=== PATIENT | female | born 1940 | race African-American/Black ===

== ENCOUNTER 2016-08-03 13:19 | Emergency (ER) | payer MEDICARE, MEDICAID ==
[2016-08-03] MEDS ORDERED: Diazepam TAB(*) 5 MG PO ONE (14:31)
--- NOTE | 2016-08-03 14:56 | RAD ---
HISTORY: Neck pain COMPARISONS: MRI dated March 09, 2006 TECHNIQUE: Multiple contiguous axial CT scans were obtained of the cervical spine without intravenous contrast, with coronal and sagittal multiplanar reformations. FINDINGS: BRAIN: The visualized brain is unremarkable CENTRAL CANAL: Evaluation of the central canal is limited on CT technique; however, there is no obvious canalicular mass or epidural hemorrhage. ALIGNMENT: The head is turned to the right VERTEBRAL BODIES: There is multilevel anterolateral marginal osteophyte formation. There is diffuse osteopenia. JOINTS: There is osteoarthritis of the uncovertebral, facet, and atlantoaxial articulations MUSCULATURE: Unremarkable INTERVERTEBRAL DISCS: There is diffuse loss of intervertebral disc height. AXIAL IMAGES: C2-C3: There is right-sided uncovertebral facet hypertrophy. There is moderate right neural foraminal narrowing. There is no osseous central canal stenosis. C3-C4: There is fusion across the facet joints on the right. There is no osseous neural foraminal area or central canal stenosis. C4-C5: There is right greater than left uncovertebral facet hypertrophy. There is mild right neural foraminal narrowing. There is no significant central canal stenosis. C5-C6: There is right-sided uncovertebral facet hypertrophy. There is no significant osseous neural foraminal narrowing or central canal stenosis. C6-C7: There is a broad-based disc osteophyte complex with bilateral uncovertebral facet hypertrophy. There is mild left neural foraminal narrowing. There is no osseous Stenosis. C7-T1: There is no osseous neural foraminal narrowing or central canal stenosis. SOFT TISSUES: The visualized soft tissues of the neck are unremarkable. The prevertebral fat stripe is preserved. OTHER: None. IMPRESSION: DEGENERATIVE DISC DISEASE AND OSTEOARTHRITIS. NO ACUTE OSSEOUS INJURY TO THE CERVICAL SPINE
--- NOTE | 2016-08-03 15:05 | ED ---
Neck Pain - HPI Summary HPI Summary: Patient presents with an exacerbation of her chronic neck. She denies knowing what set this episode in motion but the Tramadol she typically uses is not helping. She denies ROSAS, fever, N/T or vision changes. The pain is over the right side of the neck muscles. She has not been in touch with her PCP. - History of Current Complaint Chief Complaint: EDNeckComplaint Stated Complaint: SPASMS ON RT SIDE Time Seen by Provider: 08/03/16 14:02 Hx Obtained From: Patient Onset/Duration Of Injury/Symptoms: Days Mechanism Of Injury: No Known Trauma Timing: Constant Onset/Duration: Gradual Onset, Still Present Severity Initially: Mild Severity Currently: Severe Pain Intensity: 8 Location: Discrete At: - right neck muscles Character: Aching Aggravating Factors: Movement Alleviating Factors: Nothing Associated Signs & Symptoms: Positive: Negative Related History: Previous Neck Injury - Allergies/Home Medications Allergies/Adverse Reactions: Allergies Allergy/AdvReac Type Severity Reaction Status Date / Time Amitriptyline Allergy Intermediate Tachycardia Verified 11/18/15 16:55 Tizanidine Allergy Intermediate Swelling Verified 11/18/15 16:55 Aspirin [ASA] Allergy Mild GI Upset Verified 11/18/15 16:55 Baclofen Allergy Mild GI Upset Verified 11/18/15 16:55 Benztropine Allergy Mild GI Upset Verified 11/18/15 16:55 Ibuprofen [From Motrin] Allergy Mild GI Upset Verified 11/18/15 16:55 Trihexyphenidyl [From Artane] Allergy Unknown GI Upset Verified 11/18/15 16:55 Risperidone [From Risperdal] AdvReac Severe NMS Verified 11/18/15 16:55 PMH/Surg Hx/FS Hx/Imm Hx Endocrine/Hematology History: Reports: Hx Anemia Denies: Hx Anticoagulant Therapy, Hx Diabetes, Hx Unexplained Bleeding Cardiovascular History: Reports: Hx Hypercholesterolemia - DYSLIPIDEMIA, Other Cardiovascular Problems/Disorders - SEPSIS WITH STREP B Denies: Hx Aneurysm, Hx Angina, Hx Angioplasty, Hx Auto Implanted Cardiovert Defib, Hx Cardiac Arrest, Hx Cardiomegaly, Hx Congenital Heart Disease, Hx Congestive Heart Failure, Hx Coronary Artery Disease, Hx Deep Vein Thrombosis, Hx Embolism, Hx Hypotension, Hx Hypertension, Hx Pacemaker/ICD, Hx Peripheral Vascular Disease, Hx Rheumatic Fever, Hx Syncope, Hx Valvular Heart Disease History: Reports: Other Problems/Disorders - UTI'S Musculoskeletal History: Reports: Hx Osteoporosis, Other Musculoskeletal History - degenerative disc disease, torticollis, cervical dystonia Sensory History: Reports: Hx Contacts or Glasses Denies: Hx Cataracts, Hx Eye Injury, Hx Eye Prosthesis, Hx Glaucoma, Hx Legally Blind, Hx Macular Degeneration, Hx Vision Problem, Hx Deafness, Hx Hearing Aid, Hx Hearing Problem, Other Sensory Impairments Opthamlomology History: Reports: Hx Contacts or Glasses Denies: Hx Cataracts, Hx Eye Injury, Hx Eye Prosthesis, Hx Glaucoma, Hx Legally Blind, Hx Macular Degeneration, Hx Vision Problem, Other Sensory Impairments Neurological History: 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 Psychiatric History: Reports: Hx Anxiety, Hx Depression, Hx Panic Disorder, Hx Inpatient Treatment - [facility] [place] 2010, Hx [facility] Tx - [facility], Hx Schizophrenia, Other Psychiatric Issues/Disorders - PARANOIA Denies: Hx Eating Disorder, Hx of Violent Episodes Against Others - Cancer History Hx Chemotherapy: No Hx Radiation Therapy: No - Surgical History Surgery Procedure, Year, and Place: TUBAL LIGATION 1969 Infectious Disease History: No Infectious Disease History: Reports: Hx of Known/Suspected MRSA Denies: Traveled Outside the [place] in Last 30 Days - Family History Known Family History: Positive: Hypertension - Social History Occupation: Retired Lives: With Family Alcohol Use: Rare Hx Substance Use: No Substance Use Type: Reports: None Hx Tobacco Use: No Smoking Status (MU): Former Smoker Review of Systems Negative: Fever, Chills Negative: Photophobia, Blurred Vision Negative: Sore Throat Positive: Myalgia. Negative: Edema Negative: Rash Negative: Headache, Weakness, Paresthesia, Numbness All Other Systems Reviewed And Are Negative: Yes Physical Exam Triage Information Reviewed: Yes Vital Signs On Initial Exam: Initial Vitals Temp Pulse Resp BP Pulse Ox 98.2 F 103 18 127/77 100 08/03/16 13:21 08/03/16 13:21 08/03/16 13:21 08/03/16 13:21 08/03/16 13:21 Vital Signs Reviewed: Yes Appearance: Positive: Well-Appearing, Well-Nourished, Pain Distress Skin: Positive: Warm, Skin Color Reflects Adequate Perfusion, Dry, Soft Head/Face: Positive: Normal Head/Face Inspection Eyes: Positive: EOMI, CAITLYN, Conjunctiva Clear ENT: Positive: Hearing grossly normal, Pharynx normal Neck: Positive: Supple, Tenderness @ - minimal tenderness over right SCM muscle ; non-tender over cervical spine. Negative: No Lymphadenopathy Respiratory/Lung Sounds: Positive: Breath Sounds Present Cardiovascular: Positive: RRR Musculoskeletal: Positive: Limited @ - turning neck to right and left is limited to 70 degrees bilaterally with mild discomfort.. Negative: Edema Left, Edema Right Neurological: Positive: Sensory/Motor Intact, Alert, Oriented to Person Place, Time, [place] Bundle Intact Distally, Normal Gait Psychiatric: Positive: Affect/Mood Appropriate AVPU Assessment: Alert - [place] Coma Scale Coma Scale Total: 15 Diagnostics - Vital Signs Vital Signs Temp Pulse Resp BP Pulse Ox 08/03/16 13:21 98.2 F 103 18 127/77 100 - Laboratory Lab Statement: Any lab studies that have been ordered have been reviewed, and results considered in the medical decision making process. Re-Evaluation - Re-Evaluation First Eval Re-Evaluation Time: 15:25 Change: Improved - Patient feels better without intervention and is ready for discharge Neck Course/Dx - Diagnoses Differential Dx/HQI/PQRI: Positive: Adenitis, Arthritis, Cervical Fracture, Dystonia, Meningitis, Sprain, Strain, Torticollis Provider Diagnoses: Chronic neck pain Discharge - Discharge Plan Condition: Stable Disposition: HOME Patient Education Materials: Chronic Neck Pain (GEN) Referrals: Ronni Bradley MD [Primary Care Provider] - Additional Instructions: Please follow-up with your primary care provider in 2-3 days for evaluation. Use the medication provided to help with pain. Return to the emergency department if symptoms worsen.
[2016-08-03 15:39] VITALS: BP 122/70
== END 2016-08-03 15:38 | disposition home or self-care (01) ==
LOC: ED 13:19
DX: M54.2 Cervicalgia (principal); G89.29 Other chronic pain; Z88.1 Allergy status to other antibiotic agents; Z88.6 Allergy status to analgesic agent; Z88.8 Allergy status to other drugs, medicaments and biological substances; E78.00 Pure hypercholesterolemia, unspecified; Z87.891 Personal history of nicotine dependence
CPT/HCPCS: 72125; 99282; A9270-GY

== ENCOUNTER 2017-05-08 15:45 | Emergency (ER) | payer MEDICARE, MEDICAID ==
[2017-05-08 20:23] LABS: ALT 11 U/L (7-52); AST 19 U/L (13-39); Albumin 4.5 g/dL (3.2-5.2); Alkaline Phosphatase 62 U/L (34-104); Anion Gap 9 mmol/L (2-11); BUN/Creatinine Ratio 11.9 (8-20); Blood Urea Nitrogen 12 mg/dL (6-24); CO2 Carbon Dioxide 27 mmol/L (22-32); Calcium 9.5 mg/dL (8.6-10.3); Chloride 102 mmol/L (101-111); EGFR African American 68.7 (>60); EGFR Non-African American 53.4 (>60); Globulin 3.3 g/dL (2-4); Glucose 86 mg/dL (70-100); Potassium 3.7 mmol/L (3.5-5.0); Sodium 138 mmol/L (133-145); Total Protein 7.8 g/dL (6.4-8.9)
[2017-05-08 20:32] LABS: Hematocrit 38 % (35-47); Hemoglobin 11.9 g/dl (12.0-16.0); Mean Corpuscular HGB Conc 31 g/dl (31-36); Mean Corpuscular Hemoglobin 23 pg (27-31); Mean Corpuscular Volume 75 fL (80-97); Mean Platelet Volume 9 um3 (7.4-10.4); Red Blood Count 5.11 10^6/ul (4.0-5.4); Red Cell Distribution Width 16 % (10.5-15); White Blood Count 4.5 10^3/ul (3.5-10.8)
[2017-05-08 20:34] LABS: Add Diff/Slide Review? Slide Review Added; Comments Flag Yes
--- NOTE | 2017-05-08 20:43 | RAD ---
HISTORY: Medical clearance, lack of sleep, no appetite COMPARISONS: November 01, 2015 VIEWS: 1: frontal portable view of the chest at 8:26 PM FINDINGS: LINES AND TUBES: None. CARDIOMEDIASTINAL SILHOUETTE: The cardiomediastinal silhouette is normal for portable technique. PLEURA: The costophrenic angles are sharp. No pleural abnormalities are noted. LUNG PARENCHYMA: There is hyperinflation. ABDOMEN: The upper abdomen is clear. There is no subphrenic gas. BONES AND SOFT TISSUES: No bone or soft tissue abnormalities are noted. IMPRESSION: COPD. NO ACTIVE CARDIOPULMONARY DISEASE.
[2017-05-08 20:47] LABS: Acetaminophen < 15 mcg/mL; Salicylate < 2.50 mg/dL (<30)
[2017-05-08 20:56] LABS: Hypochromasia 3+
[2017-05-08 20:57] LABS: Microcytosis 1+
[2017-05-08 21:02] LABS: TSH (Thyroid Stimulating Horm) 1.95 mcIU/mL (0.34-5.60)
[2017-05-08 21:20] LABS: Urine Bacteria Absent (Absent); Urine Bilirubin Negative (Negative); Urine Glucose Negative (Negative); Urine Nitrite Negative (Negative)
[2017-05-08 21:22] LABS: Benzodiazepine Urine Screen None Detected (None Detect)
[2017-05-08] MEDS ORDERED: Levofloxacin TAB* 500 MG PO ONE (21:30)
[2017-05-08 22:02] VITALS: BP 138/81
[2017-05-08] MEDS ORDERED: LORazepam TAB(*) 0.5 MG PO ONE (23:48)
--- NOTE | 2017-05-09 23:37 | ED ---
Shemar Amos Rebecca, scribed for Shaun Pringle MD on 05/08/17 at 2011 . Complex/Multi-Sys Presentation - HPI Summary HPI Summary: Pt is a 76 y/o F who presents to the ED accompanied by her son due to insomnia, decreased appetite and worsening anxiety s/p of her sister. Pt reports that her sister the first week of February (about 2 months ago) and that she did not seek psychiatric support. Pt additionally c/o acute on chronic "spasms through my body" since the last week of February with current pain located in the back and neck. Son additionally notes auditory hallucinations with the pt reporting that that they are telling her "not to have my son come over." Denies SIs/HIs. PMHx spasmodic torticollis, anxiety, schizophrenia. Spasms are typically treated with Tramadol and she receives Abilify shots in the neck every 4-5 weeks for schizophrenia. Pt lives alone and receives aid from caregivers and [employer]. - History Of Current Complaint Chief Complaint: EDGeneral Time Seen by Provider: 05/08/17 19:45 Hx Obtained From: Patient Onset/Duration: Lasting Weeks, Still Present Location: Pain At: - Neck and back Aggravating Factor(s): of sister Alleviating Factor(s): Nothing Associated Signs And Symptoms: Positive: Back Pain, Other - Neck pain, auditory hallucinations, insomnia, decreased appetite, worsening anxiety - Allergies/Home Medications Allergies/Adverse Reactions: Allergies Allergy/AdvReac Type Severity Reaction Status Date / Time Amitriptyline Allergy Intermediate Tachycardia Verified 11/18/15 16:55 Tizanidine Allergy Intermediate Swelling Verified 11/18/15 16:55 Aspirin [ASA] Allergy Mild GI Upset Verified 11/18/15 16:55 Baclofen Allergy Mild GI Upset Verified 11/18/15 16:55 Benztropine Allergy Mild GI Upset Verified 11/18/15 16:55 Ibuprofen [From Motrin] Allergy Mild GI Upset Verified 11/18/15 16:55 Trihexyphenidyl [From Artane] Allergy Unknown GI Upset Verified 11/18/15 16:55 Risperidone [From Risperdal] AdvReac Severe NMS Verified 11/18/15 16:55 PMH/Surg Hx/FS Hx/Imm Hx Endocrine/Hematology History: Reports: Hx Anemia Denies: Hx Anticoagulant Therapy, Hx Diabetes, Hx Unexplained Bleeding Cardiovascular History: Reports: Hx Hypercholesterolemia - DYSLIPIDEMIA, Other Cardiovascular Problems/Disorders - SEPSIS WITH STREP B Denies: Hx Aneurysm, Hx Angina, Hx Angioplasty, Hx Auto Implanted Cardiovert Defib, Hx Cardiac Arrest, Hx Cardiomegaly, Hx Congenital Heart Disease, Hx Congestive Heart Failure, Hx Coronary Artery Disease, Hx Deep Vein Thrombosis, Hx Embolism, Hx Hypotension, Hx Hypertension, Hx Pacemaker/ICD, Hx Peripheral Vascular Disease, Hx Rheumatic Fever, Hx Syncope, Hx Valvular Heart Disease History: Reports: Other Problems/Disorders - UTI'S Musculoskeletal History: Reports: Hx Osteoporosis, Other Musculoskeletal History - degenerative disc disease, torticollis, cervical dystonia Sensory History: Reports: Hx Contacts or Glasses Denies: Hx Cataracts, Hx Eye Injury, Hx Eye Prosthesis, Hx Glaucoma, Hx Legally Blind, Hx Macular Degeneration, Hx Vision Problem, Hx Deafness, Hx Hearing Aid, Hx Hearing Problem, Other Sensory Impairments Opthamlomology History: Reports: Hx Contacts or Glasses Denies: Hx Cataracts, Hx Eye Injury, Hx Eye Prosthesis, Hx Glaucoma, Hx Legally Blind, Hx Macular Degeneration, Hx Vision Problem, Other Sensory Impairments Neurological History: 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 Psychiatric History: Reports: Hx Anxiety, Hx Depression, Hx Panic Disorder, Hx Inpatient Treatment - [facility] [place], Hx [facility] Tx - [facility], Hx Schizophrenia, Other Psychiatric Issues/Disorders - PARANOIA Denies: Hx Eating Disorder, Hx of Violent Episodes Against Others - Cancer History Hx Chemotherapy: No Hx Radiation Therapy: No - Surgical History Surgery Procedure, Year, and Place: TUBAL LIGATION 1969 Infectious Disease History: No Infectious Disease History: Reports: Hx of Known/Suspected MRSA Denies: Traveled Outside the [place] in Last 30 Days - Family History Known Family History: Positive: Hypertension - Social History Lives: Alone Alcohol Use: Rare Hx Substance Use: No Substance Use Type: Reports: None Hx Tobacco Use: No Smoking Status (MU): Former Smoker Review of Systems Positive: Other - Diffuse spasms, neck and back pain Positive: Anxious, Other - Insomnia, decreased appetite, auditory hallucinations ; NEGATIVE: SIs/HIs All Other Systems Reviewed And Are Negative: Yes Physical Exam - Summary Physical Exam Summary: VITAL SIGNS: Reviewed. GENERAL: ~Patient is a well-developed and nourished female who is lying comfortable in the stretcher. Patient is not in any acute respiratory distress. HEAD AND FACE: No signs of trauma. No ecchymosis, hematomas or skull depressions. No sinus tenderness. EYES: PERRLA, EOMI x 2, No injected conjunctiva, no nystagmus. EARS: Hearing grossly intact. Ear canals and tympanic membranes are within normal limits. MOUTH: Oropharynx within normal limits. NECK: Supple, trachea is midline, no adenopathy, no JVD, no carotid bruit, no c- spine tenderness, neck with full ROM. CHEST: Symmetric, no tenderness at palpation LUNGS: Clear to auscultation bilaterally. No wheezing or crackles. CVS: Regular rate and rhythm, S1 and S2 present, no murmurs or gallops appreciated. ABDOMEN: Soft, non-tender. No signs of distention. No rebound no guarding, and no masses palpated. Bowel sounds are normal. EXTREMITIES: FROM in all major joints, no edema, no cyanosis or clubbing. NEURO: Alert and oriented x 3. No acute neurological deficits. Speech is normal and follows commands. SKIN: Dry and warm PSYCHIATRIC: Appeared withdrawn and sad with a low pitchy voice Triage Information Reviewed: Yes Vital Signs On Initial Exam: Initial Vitals Temp Pulse Resp BP Pulse Ox 98.9 F 98 18 156/86 98 05/08/17 15:49 05/08/17 15:49 05/08/17 15:49 05/08/17 15:49 05/08/17 15:49 Vital Signs Reviewed: Yes - [place] Coma Scale Coma Scale Total: 15 Diagnostics - Vital Signs Vital Signs Temp Pulse Resp BP Pulse Ox 05/08/17 20:00 84 19 98 05/08/17 19:31 81 20 98 05/08/17 19:30 159/85 05/08/17 19:17 98.2 F 92 18 148/77 100 05/08/17 17:41 99.6 F 100 20 152/88 99 05/08/17 15:49 98.9 F 98 18 156/86 98 - Laboratory Result Diagrams: 05/08/17 19:59 05/08/17 19:59 Lab Statement: Any lab studies that have been ordered have been reviewed, and results considered in the medical decision making process. - Radiology CXR Xray Interpretation: No Acute Changes - COPD. NO ACTIVE CARDIOPULMONARY DISEASE. Dr. Pringle reviewed radiology report. Radiology Interpretation Completed By: Radiologist - EKG 2012 Cardiac Rate: NL EKG Rhythm: Sinus Rhythm EKG Interpretation: 95 bpm, normal axis, normal intervals, no acute ischemic changes Complex Multi-Symp Course/Dx Assessment/Plan: Pt is a 76 y/o F who presents to the ED accompanied by her son due to insomnia, decreased appetite and worsening anxiety s/p of her sister. Pt reports that her sister the first week of February (about 2 months ago) and that she did not seek psychiatric support. Pt additionally c/ o acute on chronic "spasms through my body" since the last week of February with current pain located in the back and neck. Son additionally notes auditory hallucinations. Denies SIs/HIs. PMHx spasmodic torticollis, anxiety, schizophrenia. Spasms are typically treated with Tramadol and she receives Abilify shots in the neck every 4-5 weeks for schizophrenia. Pt lives alone and receives aid from caregivers and [employer]. UA positive for UTI. EKG and CXR reveal no acute findings. Medically cleared for MHE at 2128. Upon psychiatric evaluation, pt has been cleared for D/C. She will be D/C to home with Dx of UTI and anxiety. Medications reviewed. Elevated BP noted and advised follow-up. - Diagnoses Provider Diagnoses: UTI (urinary tract infection) Discharge - Discharge Plan Condition: Stable Disposition: HOME Referrals: Ronni Bradley MD [Primary Care Provider] - The documentation as recorded by the Shemar kaba Rebecca accurately reflects the service I personally performed and the decisions made by me, Shaun Pringle MD.
== END 2017-05-08 23:10 | disposition home or self-care (01) ==
LOC: ED 15:45
DX: N39.0 Urinary tract infection, site not specified (principal); E78.00 Pure hypercholesterolemia, unspecified; E78.5 Hyperlipidemia, unspecified; F20.9 Schizophrenia, unspecified; M81.0 Age-related osteoporosis without current pathological fracture; F32.9 Major depressive disorder, single episode, unspecified; F41.9 Anxiety disorder, unspecified; J44.9 Chronic obstructive pulmonary disease, unspecified
CPT/HCPCS: 36415; 71010; 80053; 80307; 80329; 81003; 81015; 84443; 85025; 87086; 93005; 99283; A9270-GY; G0480

== ENCOUNTER 2017-05-09 01:46 | Emergency (ER) | payer MEDICARE, MEDICAID ==
[2017-05-09] MEDS ORDERED: Acetaminophen TAB* 325 MG PO ONE (06:34)
--- NOTE | 2017-05-09 06:42 | ED ---
Shemar Amos Rebecca, scribed for Shaun Pringle MD on 05/09/17 at 0227 . Psychiatric Complaint - HPI Summary HPI Summary: Pt is a 76 y/o F BIBA who presents to ED c/o auditory hallucinations s/p Ativan. Pt was seen by [facility] earlier tonight for a MHE and was psychiatrically and medically cleared to be D/C to home and was given 0.5 mg Ativan PO. Previously, pt reported that she takes Ativan, though on this visit she reports she has not taken it for the last 5 weeks. Hallucinations began after administration of medicatoin and have since resolved. Currently, she c/o lightheadedness. - History Of Current Complaint Chief Complaint: EDMentalHealth Time Seen by Provider: 05/09/17 02:00 Hx Obtained From: Patient Onset/Duration: Sudden Onset, Resolved Severity Currently: None Aggravating Factor(s): Other - Ativan Alleviating Factor(s): Other - Spontaneous resolution Associated Signs And Symptoms: Positive: Hallucinating - resolved Related History: Positive For: Prior Psychiatric Issues - Schizophrenia, anxiety , depression, panic disorder - Allergies/Home Medications Allergies/Adverse Reactions: Allergies Allergy/AdvReac Type Severity Reaction Status Date / Time Amitriptyline Allergy Intermediate Tachycardia Verified 11/18/15 16:55 Tizanidine Allergy Intermediate Swelling Verified 11/18/15 16:55 Aspirin [ASA] Allergy Mild GI Upset Verified 11/18/15 16:55 Baclofen Allergy Mild GI Upset Verified 11/18/15 16:55 Benztropine Allergy Mild GI Upset Verified 11/18/15 16:55 Ibuprofen [From Motrin] Allergy Mild GI Upset Verified 11/18/15 16:55 Trihexyphenidyl [From Artane] Allergy Unknown GI Upset Verified 11/18/15 16:55 Risperidone [From Risperdal] AdvReac Severe NMS Verified 11/18/15 16:55 PMH/Surg Hx/FS Hx/Imm Hx Endocrine/Hematology History: Reports: Hx Anemia Denies: Hx Anticoagulant Therapy, Hx Diabetes, Hx Unexplained Bleeding Cardiovascular History: Reports: Hx Hypercholesterolemia - DYSLIPIDEMIA, Other Cardiovascular Problems/Disorders - SEPSIS WITH STREP B Denies: Hx Aneurysm, Hx Angina, Hx Angioplasty, Hx Auto Implanted Cardiovert Defib, Hx Cardiac Arrest, Hx Cardiomegaly, Hx Congenital Heart Disease, Hx Congestive Heart Failure, Hx Coronary Artery Disease, Hx Deep Vein Thrombosis, Hx Embolism, Hx Hypotension, Hx Hypertension, Hx Pacemaker/ICD, Hx Peripheral Vascular Disease, Hx Rheumatic Fever, Hx Syncope, Hx Valvular Heart Disease History: Reports: Other Problems/Disorders - UTI'S Musculoskeletal History: Reports: Hx Osteoporosis, Other Musculoskeletal History - degenerative disc disease, torticollis, cervical dystonia Sensory History: Reports: Hx Contacts or Glasses Denies: Hx Cataracts, Hx Eye Injury, Hx Eye Prosthesis, Hx Glaucoma, Hx Legally Blind, Hx Macular Degeneration, Hx Vision Problem, Hx Deafness, Hx Hearing Aid, Hx Hearing Problem, Other Sensory Impairments Opthamlomology History: Reports: Hx Contacts or Glasses Denies: Hx Cataracts, Hx Eye Injury, Hx Eye Prosthesis, Hx Glaucoma, Hx Legally Blind, Hx Macular Degeneration, Hx Vision Problem, Other Sensory Impairments Neurological History: 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 Psychiatric History: Reports: Hx Anxiety, Hx Depression, Hx Panic Disorder, Hx Inpatient Treatment - [facility] [place] 2010, Hx [facility] - [facility], Hx Schizophrenia, Other Psychiatric Issues/Disorders - PARANOIA Denies: Hx Eating Disorder, Hx of Violent Episodes Against Others - Cancer History Hx Chemotherapy: No Hx Radiation Therapy: No - Surgical History Surgery Procedure, Year, and Place: TUBAL LIGATION 1969 Infectious Disease History: No Infectious Disease History: Reports: Hx of Known/Suspected MRSA Denies: Traveled Outside the [place] in Last 30 Days - Family History Known Family History: Positive: Hypertension - Social History Alcohol Use: Rare Hx Substance Use: No Substance Use Type: Reports: None Hx Tobacco Use: No Smoking Status (MU): Former Smoker Review of Systems Neurological: Other - Lightheadedness Positive: Other - Auditory hallucinations (resolved) All Other Systems Reviewed And Are Negative: Yes Physical Exam - Summary Physical Exam Summary: VITAL SIGNS: Reviewed. GENERAL: ~Patient is a well-developed and nourished female who is lying comfortable in the stretcher. Patient is not in any acute respiratory distress. HEAD AND FACE: No signs of trauma. No ecchymosis, hematomas or skull depressions. No sinus tenderness. EYES: PERRLA, EOMI x 2, No injected conjunctiva, no nystagmus. EARS: Hearing grossly intact. Ear canals and tympanic membranes are within normal limits. MOUTH: Oropharynx within normal limits. CHEST: Symmetric, no tenderness at palpation LUNGS: Clear to auscultation bilaterally. No wheezing or crackles. CVS: Regular rate and rhythm, S1 and S2 present, no murmurs or gallops appreciated. EXTREMITIES: FROM in all major joints, no edema, no cyanosis or clubbing. NEURO: Alert and oriented x 3. No acute neurological deficits. Speech is normal and follows commands. SKIN: Dry and warm PSYCHIATRIC: Shaky Triage Information Reviewed: Yes Vital Signs On Initial Exam: Initial Vitals Temp Pulse Resp BP Pulse Ox 99.6 F 108 16 130/81 100 05/09/17 01:46 05/09/17 01:46 05/09/17 01:46 05/09/17 01:46 05/09/17 01:46 Vital Signs Reviewed: Yes - [place] Coma Scale Coma Scale Total: 15 Diagnostics - Vital Signs Vital Signs Temp Pulse Resp BP Pulse Ox 05/09/17 01:46 99.6 F 108 16 130/81 100 - Laboratory Lab Statement: Any lab studies that have been ordered have been reviewed, and results considered in the medical decision making process. Re-Evaluation - Re-Evaluation First Eval Re-Evaluation Time: 06:39 Comment: Gave her the options of staying here, oging home, or waiting for her some. She chooses to go home. She is willing and wants to go home therefore she will be D/C to home with Dx of anxiety. Course/Dx - Course Assessment/Plan: Pt is a 76 y/o F BIBA who presents to ED c/o auditory hallucinations s/p Ativan. Pt was seen by [facility] earlier tonight for a MHE and was psychiatrically and medically cleared to be D/C to home and was given 0.5 mg Ativan PO. Previously, pt reported that she takes Ativan, though on this visit she reports she has not taken it for the last 5 weeks. Hallucinations began after administration of medicatoin and have since resolved. Currently, she c/o lightheadedness. Medically cleared for MHE at 0219. Gave her the options of staying here, oging home, or waiting for her some. She chooses to go home. She is willing and wants to go home therefore she will be D/C to home with Dx of anxiety. She understands and agrees. Allergies noted. - Differential Dx/Clinical Impression Provider Diagnosis: Anxiety Discharge - Discharge Plan Condition: Stable Disposition: HOME Patient Education Materials: Anxiety (ED) Referrals: Ronni Bradley MD [Primary Care Provider] - Additional Instructions: RETURN TO EMERGENCY DEPARTMENT FOR ANY NEW OR WORSENING SYMPTOMS The documentation as recorded by the Shemar kaba Rebecca accurately reflects the service I personally performed and the decisions made by , Shaun Pringle MD.
[2017-05-09 07:48] VITALS: BP 144/75
== END 2017-05-09 07:48 | disposition home or self-care (01) ==
LOC: ED 01:46
DX: F41.9 Anxiety disorder, unspecified (principal); E78.00 Pure hypercholesterolemia, unspecified; E78.5 Hyperlipidemia, unspecified; Z87.891 Personal history of nicotine dependence
CPT/HCPCS: 99282; A9270-GY

== ENCOUNTER 2017-06-16 10:20 | Inpatient (IN) | payer MEDICARE, MEDICAID ==
--- NOTE | 2017-06-16 12:32 | RAD ---
INDICATION: Altered mental status COMPARISON: CT brain February 08, 2013 TECHNIQUE: Noncontrast axial source images were acquired from the skull base to the vertex. FINDINGS: Ventricles/sulci: There is mild age-related cortical atrophy. Brain parenchyma: There is no focal parenchymal finding, evidence of intracranial mass, or intracranial mass effect. Intracranial hemorrhage:None. Extra-axial spaces: There are no abnormal extra axial fluid collections or evidence of extra-axial mass. Calvarium: There is no calvarial fracture or other calvarial abnormality. Scalp: There is no evidence of scalp or extracalvarial soft tissue abnormality. Paranasal sinuses/mastoid: The paranasal sinuses and mastoid air cells are clear. Other: None. IMPRESSION: No acute intracranial findings.
--- NOTE | 2017-06-16 12:50 | RAD ---
HISTORY: Altered mental status COMPARISONS: May 08, 2017 VIEWS: 1: frontal portable view of the chest at 12:12 PM FINDINGS: LINES AND TUBES: None. CARDIOMEDIASTINAL SILHOUETTE: The cardiomediastinal silhouette is normal for portable technique. PLEURA: The costophrenic angles are sharp. No pleural abnormalities are noted. LUNG PARENCHYMA: There is hyperinflation. ABDOMEN: The upper abdomen is clear. There is no subphrenic gas. BONES AND SOFT TISSUES: There is levocurvature of the spine. IMPRESSION: COPD. NO ACTIVE CARDIOPULMONARY DISEASE.
[2017-06-16 13:23] LABS: EGFR Non-African American 62.5 (>60)
[2017-06-16 13:45] LABS: ABS Basophils 0.1 10^3/ul (0-0.2); ABS Eosinophils 0 10^3/ul (0-0.6); ABS Lymphocytes 1.3 10^3/ul (1.0-4.8); ABS Monocytes 0.4 10^3/ul (0-0.8); ABS Neutrophils 4.9 10^3/ul (1.5-7.7); ABS Nucleated RBC 0 10^3/ul; Eosinophil % 0.3 % (0-6); Hematocrit 36 % (35-47); Hemoglobin 11.5 g/dl (12.0-16.0); Lymphocyte % 18.9 % (25-47); Mean Corpuscular HGB Conc 32 g/dl (31-36); Mean Corpuscular Hemoglobin 24 pg (27-31); Mean Corpuscular Volume 74 fL (80-97); Mean Platelet Volume 10 um3 (7.4-10.4); Nucleated Red Blood Cells % 0.1; Platelet Count 224 10^3/ul (150-450); Red Blood Count 4.89 10^6/ul (4.0-5.4); Red Cell Distribution Width 16 % (10.5-15); White Blood Count 6.6 10^3/ul (3.5-10.8)
[2017-06-16 14:11] LABS: Urine Appearance Clear; Urine Blood 1+ (Negative); Urine Color Yellow; Urine Ketones 1+ (Negative); Urine Protein Negative (Negative); Urine Specific Gravity 1.014 (1.010-1.030); Urine Urobilinogen Negative (Negative)
[2017-06-16] MEDS ORDERED: Levofloxacin TAB* 500 MG PO ONE (14:13)
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
--- NOTE | 2017-06-16 23:33 | ED ---
Turner Amos Stephanie, scribed for Shaun Pringle MD on 06/16/17 at 2327 . Progress - Progress Note Progress Note: Pt pending MHE. Pt diagnosed with psychosis and will be admitted per mental health head start teacher. - Consult/PCP Time Called: 14:00 Course/Dx - Course Course Of Treatment: The pt will be admitted. - Diagnoses Provider Diagnoses: Acute psychosis, UTI (urinary tract infection) - Provider Notifications Instructed by Provider To: Admit As Inpatient The documentation as recorded by the Turner kaba Stephanie accurately reflects the service I personally performed and the decisions made by Yary killian Abdul, MD.
[2017-06-17] MEDS ORDERED: Acetaminophen TAB* 325 MG PO PRN (01:14)
[2017-06-17] MEDS ORDERED: Al Hydrox/Mg Hydrox/Simet LIQ* 30 ML UDC PO PRN (01:14)
[2017-06-17] MEDS ORDERED: ARNICA TOPICAL PRN (01:15)
[2017-06-17] MEDS: LORazepam TAB(*) 0.5 MG PO PRN (01:50)
[2017-06-17] MEDS: traMADol TAB* 50 MG PO PRN ×2 (01:50→23:35)
[2017-06-17] MEDS: Vitamin THERAPEUTIC TAB PO SCH (10:10)
[2017-06-17] MEDS: ARIPiprazole TAB* 2 MG PO SCH (16:57)
[2017-06-17] MEDS: Lidocaine Patch REMOVE* 1 NOTE MISC PATCH OFF SCH (21:31)
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
[2017-06-18] MEDS: traMADol TAB* 50 MG PO PRN (02:30)
[2017-06-18] MEDS: LORazepam TAB(*) 0.5 MG PO PRN ×2 (02:30→23:35)
[2017-06-18] MEDS: ARIPiprazole TAB* 2 MG PO SCH (07:34)
[2017-06-18] MEDS: Vitamin THERAPEUTIC TAB PO SCH (07:34)
[2017-06-18] MEDS: Lidocaine Patch REMOVE* 1 NOTE MISC PATCH OFF SCH (21:17)
[2017-06-19] MEDS: Vitamin THERAPEUTIC TAB PO SCH (09:08)
[2017-06-19] MEDS: traMADol TAB* 50 MG PO PRN (09:09)
[2017-06-19] MEDS: ARIPiprazole TAB* 2 MG PO SCH (09:09)
[2017-06-19] MEDS: Lidocaine PATCH 5%* 1 PATCH TRANSDERM PRN (12:38)
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
[2017-06-20] MEDS: Lidocaine Patch REMOVE* 1 NOTE MISC PATCH OFF SCH ×2 (00:24→23:55)
[2017-06-20] MEDS: Vitamin THERAPEUTIC TAB PO SCH (09:40)
[2017-06-20] MEDS: ARIPiprazole TAB* 2 MG PO SCH (09:40)
--- NOTE | 2017-06-20 10:29 | PN ---
Subjective - Subjective Date of Service: 06/20/17 Service Type: 98619 Hosp care 15 min low complexity Subjective: Carlotta presents today as odd, with strange physical posturing in her bed and paranoid, delusional thoughts. She appears to be confused and tells me that a man named "Gerardo Hammonds" works here on the unit and has been unkind to her. "He 's telling everyone that I should be ostracized." I had Carlotta get up and do some walking for me in the hallway, which she does with minimal assistance. She has no cogwheeling in her upper extremities, although her neck appears dystonic and she has facial tremors. I am told by staff that Carlotta was recently taken off aripiprazole [place] by [facility] but I have clarification about why this was done. The patient denies SI or HI. Objective - Appearance Appearance: Thin Framed Dysmorphic Features: No Hygiene: Normal Grooming: Fairly Well Kept - Behavior Psychomotor Activities: Abnormal-Decreased Exhibits Abnormal Movement: Yes - Attitude and Relatedness Attitude and Relatedness: Psychotically Related Eye Contact: Poor - Speech Quality: Unpressured Latencies: Long Quantity: Terse - Mood Patient's Decription of Mood: "Okay" - Affect Observed Affect: Tense Affect Consistent with: Dysphoria - Thought Process Patient's Thought Process: Disorganized Thought Content: Yes Paranoid Ideation, No Passive Wish, No Suicidal Planning, No Homicidal Ideation - Sensorium Experiencing Hallucinations: Yes Type of Hallucinations: Visual: No, Auditory: Yes, Command: No - Level of Consciousness Level of Consciousness: Alert Orientation: Yes Intact, Yes Orientated to Time, Yes Orientated to Place, Yes Orientated to Person - Impulse Control Impulse Control: Poor - Insight and Judgement Insight and Judgement: Impaired - Group Participation Particating in Group Activities: No - Medication Management Medication Management Adherence: Yes Assessment - Assessment Merits Inpatient Hospitalization: For Immediate Safety, For Stabilization Inpatient DSM-IV Dx: Schizophrenia Clinical Impression: 77 y.o. , AA female with a history of multiple psychiatric hospitalizations in the past for schizophrenia BIB taxi complaining of auditory hallucinations and paranoid delusions regarding people keeping her locked up against her will, as well as some limitations in self-care. Plan - Plan Treatment Plan: Name: CARLOTTA ESCOTO Birthdate: 1940 [id number] We have resumed oral aripiprazole 2mg PO qday and will increase this to 5mg dosing. We need collateral contact with the outpatient clinic to see why injectable aripiprazole was discontinued. I will order PT/OT consults to see if the patient is appropriate for subacute rehab. Will try to maximize outpatient supports, including visiting nursing services. Continue inpatient- level services. Continued Medication Management: Continue Outpt Medication Medications: Current Medications Acetaminophen (Tylenol Tab*) 650 mg PO Q4H PRN PRN Reason: PAIN or TEMP > 101 F Al Hydrox/Mg Hydrox/Simethicone (Maalox Plus*) 30 ml PO Q4H PRN PRN Reason: INDIGESTION Aripiprazole (Abilify Tab*) 5 mg PO DAILY JANIE Lidocaine (Lidoderm 5% Patch*) 1 patch TRANSDERM DAILY PRN PRN Reason: PAIN Last Admin: 06/19/17 12:38 Dose: 1 patch Lorazepam (Ativan Tab(*)) 0.5 mg PO BEDTIME PRN PRN Reason: ANXIETY Last Admin: 06/18/17 23:35 Dose: 0.5 mg Multivitamins (Theragran Tab*) 1 tab PO DAILY JANIE Last Admin: 06/20/17 09:40 Dose: 1 tab Nf: Arnica Gel [ (Homeopathic Product]) 1 dose TOPICAL DAILY PRN PRN Reason: PAIN - ARTHRITIS Pharmacy Profile Note (Lidocaine Patch Remove*) 1 note PATCH OFF 2100 JANIE Last Admin: 06/20/17 00:24 Dose: Not Given Tramadol HCl (Ultram*) 50 mg PO Q6H PRN PRN Reason: PAIN Last Admin: 06/19/17 09:09 Dose: 50 mg - Discharge Plan Discharge Plan: Inpatient Hospitalization Lab Results - Lab Results Lab Results: 06/20/17 06/20/17 07:55 08:22 POC Glucose (mg/dL) 91 Triglycerides 65 Cholesterol 229 LDL Cholesterol 154 HDL Cholesterol 61.9
[2017-06-21] MEDS: Lidocaine PATCH 5%* 1 PATCH TRANSDERM PRN (01:47)
[2017-06-21] MEDS: traMADol TAB* 50 MG PO PRN (01:53)
[2017-06-21] MEDS: ARIPiprazole TAB* 5 MG PO SCH (07:36)
[2017-06-21] MEDS: Vitamin THERAPEUTIC TAB PO SCH (07:37)
--- NOTE | 2017-06-21 11:38 | PN ---
[facility]: Group Therapy Note - Service Type Service Type: 07259 Group Psychotherapy - Cognitive Behavioral Group Therapy ( CBT):Patient attended CBT programming this morning and presented with flat affect that did not vary with discussion. Although responsive to direct prompts to respond to questions, patient did not engage in spontaneous conversation.
--- NOTE | 2017-06-21 12:17 | PN ---
Subjective - Subjective Date of Service: 06/21/17 Service Type: 71189 Hosp care 15 min low complexity Subjective: The patient is more alert and more interactive this morning. She denies AH or paranoid thoughts. I have read the PT and OT evaluations, which indicated that she does not have any acute [place] [facility] needs. The patient states that she is supposed to be on injectable aripiprazole monthly, however, her son, Kingsley, reported that she has been taken off of this by the clinic. This observer left a message for outpatient psychiatrist, Bell Soler ([phone]), in an attempt to clarify her current med regimen. The patient denies SI or HI. Objective - Appearance Appearance: Thin Framed Dysmorphic Features: No Hygiene: Normal Grooming: Well Kept - Behavior Psychomotor Activities: Normal Exhibits Abnormal Movement: No - Attitude and Relatedness Attitude and Relatedness: Cooperative Eye Contact: Fair - Speech Quality: Unpressured Latencies: Normal Quantity: Appropriate - Mood Patient's Decription of Mood: "Okay" - Affect Observed Affect: Fair Affect Consistent with: Euthymia - Thought Process Patient's Thought Process: Coherent Thought Content: No Passive Wish, No Suicidal Planning, No Homicidal Ideation, No Paranoid Ideation - Sensorium Experiencing Hallucinations: No, Sensorium is Clear Type of Hallucinations: Visual: No, Auditory: No, Command: No - Level of Consciousness Level of Consciousness: Alert Orientation: No Intact, No Orientated to Time, No Orientated to Place, No Orientated to Person - Impulse Control Impulse Control: Tenuous - Insight and Judgement Insight and Judgement: Fair - Group Participation Particating in Group Activities: Yes - Medication Management Medication Management Adherence: Yes Assessment - Assessment Merits Inpatient Hospitalization: Consolidate Improvements, Pending Safe DC Plan Inpatient DSM-IV Dx: Schizophrenia Clinical Impression: 77 y.o. , AA female with a history of multiple psychiatric hospitalizations in the past for schizophrenia BIB taxi complaining of auditory hallucinations and paranoid delusions regarding people keeping her locked up against her will, as well as some limitations in self-care. Plan - Plan Treatment Plan: Name: CARLOTTA ESCOTO Birthdate: 1940 [id number] We have resumed oral aripiprazole 2mg PO qday and will increase this to 5mg dosing. We need collateral contact with the outpatient clinic to see if and why injectable aripiprazole was discontinued. PT/OT consults do not seem to support referral to subacute rehab. Will try to maximize outpatient supports, including visiting nursing services. Continue inpatient-level services. Continued Medication Management: Continue Outpt Medication Medications: Current Medications Acetaminophen (Tylenol Tab*) 650 mg PO Q4H PRN PRN Reason: PAIN or TEMP > 101 F Al Hydrox/Mg Hydrox/Simethicone (Maalox Plus*) 30 ml PO Q4H PRN PRN Reason: INDIGESTION Aripiprazole (Abilify Tab*) 5 mg PO DAILY [facility] Last Admin: 06/21/17 07:36 Dose: 5 mg Lidocaine (Lidoderm 5% Patch*) 1 patch TRANSDERM DAILY PRN PRN Reason: PAIN Last Admin: 06/21/17 01:47 Dose: 1 patch Lorazepam (Ativan Tab(*)) 0.5 mg PO BEDTIME PRN PRN Reason: ANXIETY Last Admin: 06/18/17 23:35 Dose: 0.5 mg Multivitamins (Theragran Tab*) 1 tab PO DAILY [facility] Last Admin: 06/21/17 07:37 Dose: 1 tab Nf: Arnica Gel [ (Homeopathic Product]) 1 dose TOPICAL DAILY PRN PRN Reason: PAIN - ARTHRITIS Pharmacy Profile Note (Lidocaine Patch Remove*) 1 note PATCH OFF 2100 [facility] Last Admin: 06/20/17 23:55 Dose: Not Given Tramadol HCl (Ultram*) 50 mg PO Q6H PRN PRN Reason: PAIN Last Admin: 06/21/17 01:53 Dose: 50 mg - Discharge Plan Discharge Plan: Inpatient Hospitalization Lab Results - Lab Results Lab Results: 06/20/17 06/20/17 06/20/17 07:55 08:22 08:22 POC Glucose (mg/dL) 91 Hemoglobin A1c 5.2 Triglycerides 65 Cholesterol 229 LDL Cholesterol 154 HDL Cholesterol 61.9
[2017-06-21] MEDS: Lidocaine Patch REMOVE* 1 NOTE MISC PATCH OFF SCH (21:55)
[2017-06-22] MEDS: ARIPiprazole TAB* 5 MG PO SCH (07:05)
[2017-06-22] MEDS: Vitamin THERAPEUTIC TAB PO SCH (09:08)
[2017-06-22] MEDS ORDERED: LORazepam TAB(*) 1 MG PO ONE (10:30)
[2017-06-22 11:31] LABS: Urine Appearance Cloudy; Urine Blood Negative (Negative); Urine Color Yellow; Urine Ketones Negative (Negative); Urine Protein Negative (Negative); Urine Specific Gravity 1.013 (1.010-1.030); Urine Urobilinogen Negative (Negative)
--- NOTE | 2017-06-22 13:03 | PN ---
Subjective - Subjective Date of Service: 06/22/17 Subjective: The patient was found by this observer on the mat next to her bed, naked and resting, as though taking a nap. She was subsequently assisted by staff to put her clothes back on and get into bed. Shortly thereafter she apparently lowered herself back down to all fours and was taking her pants off. One hour later I attempted to re-engage with Carlotta and she was back to herself, stating that she just felt more comfortable on the floor. She seems to be tolerating her medications well and I got a voicemail from outpatient psychiatrist Bell Soler to the effect that the patient is still on long acting aripiprazole and got her last dose of Maintena 200mg IM on Monday, June 07. It was Dr. Soler's expressed sense that periodically Carlotta gets breakthrough psychotic symptoms that necessitate either temporary increases in Maintena dosing or augmentations with oral aripiprazole. The patient denies SI or HI. Objective - Appearance Appearance: Thin Framed Dysmorphic Features: No Hygiene: Normal Grooming: Fairly Well Kept - Behavior Psychomotor Activities: Abnormal-Decreased Exhibits Abnormal Movement: No - Attitude and Relatedness Attitude and Relatedness: Withdrawn Eye Contact: Fair - Speech Quality: Unpressured Latencies: Long Quantity: Terse - Mood Patient's Decription of Mood: "Fine" - Affect Observed Affect: Unvariable Affect Consistent with: Euthymia - Thought Process Patient's Thought Process: Impoverished Thought Content: No Passive Wish, No Suicidal Planning, No Homicidal Ideation, No Paranoid Ideation - Sensorium Experiencing Hallucinations: Yes Type of Hallucinations: Visual: No, Auditory: Yes, Command: No - Level of Consciousness Level of Consciousness: Alert Orientation: Yes Intact, Yes Orientated to Time, Yes Orientated to Place, Yes Orientated to Person - Impulse Control Impulse Control: Poor - Insight and Judgement Insight and Judgement: Impaired - Group Participation Particating in Group Activities: No - Medication Management Medication Management Adherence: Yes Assessment - Assessment Merits Inpatient Hospitalization: For Immediate Safety, For Stabilization Inpatient DSM-IV Dx: Schizophrenia Clinical Impression: 77 y.o. , AA female with a history of multiple psychiatric hospitalizations in the past for schizophrenia BIB taxi complaining of auditory hallucinations and paranoid delusions regarding people keeping her locked up against her will, as well as some limitations in self-care. Plan - Plan Treatment Plan: Name: CARLOTTA ESCOTO Birthdate: 1940 [id number] We have resumed oral aripiprazole 5mg PO qday and will allow some time to let this take effect. She is also on aripiprazole Maintena 200mg IM q4wks. PT/OT consults do not seem to support referral to subacute rehab. Will try to maximize outpatient supports, including visiting nursing services. Continue inpatient-level services. Continued Medication Management: Continue Outpt Medication Medications: Current Medications Acetaminophen (Tylenol Tab*) 650 mg PO Q4H PRN PRN Reason: PAIN or TEMP > 101 F Al Hydrox/Mg Hydrox/Simethicone (Maalox Plus*) 30 ml PO Q4H PRN PRN Reason: INDIGESTION Aripiprazole (Abilify Tab*) 5 mg PO DAILY [facility] Last Admin: 06/22/17 07:05 Dose: 5 mg Lidocaine (Lidoderm 5% Patch*) 1 patch TRANSDERM DAILY PRN PRN Reason: PAIN Last Admin: 06/21/17 01:47 Dose: 1 patch Lorazepam (Ativan Tab(*)) 0.5 mg PO BEDTIME PRN PRN Reason: ANXIETY Last Admin: 06/18/17 23:35 Dose: 0.5 mg Multivitamins (Theragran Tab*) 1 tab PO DAILY [facility] Last Admin: 06/22/17 09:08 Dose: 1 tab Nf: Arnica Gel [ (Homeopathic Product]) 1 dose TOPICAL DAILY PRN PRN Reason: PAIN - ARTHRITIS Pharmacy Profile Note (Lidocaine Patch Remove*) 1 note PATCH OFF 2100 [facility] Last Admin: 06/21/17 21:55 Dose: 1 note Tramadol HCl (Ultram*) 50 mg PO Q6H PRN PRN Reason: PAIN Last Admin: 06/21/17 01:53 Dose: 50 mg - Discharge Plan Discharge Plan: Inpatient Hospitalization Lab Results - Lab Results Lab Results: 06/20/17 06/20/17 06/20/17 07:55 08:22 08:22 POC Glucose (mg/dL) 91 Hemoglobin A1c 5.2 Total Creatine Kinase Triglycerides 65 Cholesterol 229 LDL Cholesterol 154 HDL Cholesterol 61.9 Urine Color Urine Appearance Urine pH Ur Specific Normal Urine Protein Urine Ketones Urine Blood Urine Nitrate Urine Bilirubin Urine Urobilinogen Ur Leukocyte Esterase Urine WBC (Auto) Urine RBC (Auto) Ur Squamous Epith Cells Urine Bacteria Urine Glucose Urine Ascorbic Acid 06/21/17 06/22/17 12:39 11:00 POC Glucose (mg/dL) Hemoglobin A1c Total Creatine Kinase 432 H Triglycerides Cholesterol LDL Cholesterol HDL Cholesterol Urine Color Yellow Urine Appearance Cloudy Urine pH 7.0 Ur Specific Normal 1.013 Urine Protein Negative Urine Ketones Negative Urine Blood Negative Urine Nitrate Negative Urine Bilirubin Negative Urine Urobilinogen Negative Ur Leukocyte Esterase 1+ H Urine WBC (Auto) Trace(0-5/hpf) Urine RBC (Auto) Absent Ur Squamous Epith Cells Present H Urine Bacteria Absent Urine Glucose Negative Urine Ascorbic Acid * H
[2017-06-22] MEDS: Lidocaine Patch REMOVE* 1 NOTE MISC PATCH OFF SCH (20:27)
[2017-06-23] MEDS: Vitamin THERAPEUTIC TAB PO SCH (08:06)
[2017-06-23] MEDS: ARIPiprazole TAB* 5 MG PO SCH (08:06)
--- NOTE | 2017-06-23 08:57 | PN ---
Subjective - Subjective Date of Service: 06/22/17 Service Type: [id number] Group Psychotherapy - Medication Education Group: Patient attended group and presented with flat affect that did not vary with discussion. Although responsive to direct prompts to respond to questions, patient did not engage in spontaneous conversation. Assessment - Assessment Inpatient DSM-IV Dx: Schizophrenia Plan - Plan Treatment Plan: Name: CARLOTTA ESCOTO Birthdate: 1940 [id number] Medications: Current Medications Acetaminophen (Tylenol Tab*) 650 mg PO Q4H PRN PRN Reason: PAIN or TEMP > 101 F Al Hydrox/Mg Hydrox/Simethicone (Maalox Plus*) 30 ml PO Q4H PRN PRN Reason: INDIGESTION Aripiprazole (Abilify Tab*) 5 mg PO DAILY [facility] Last Admin: 06/23/17 08:06 Dose: 5 mg Lidocaine (Lidoderm 5% Patch*) 1 patch TRANSDERM DAILY PRN PRN Reason: PAIN Last Admin: 06/21/17 01:47 Dose: 1 patch Lorazepam (Ativan Tab(*)) 0.5 mg PO BEDTIME PRN PRN Reason: ANXIETY Last Admin: 06/18/17 23:35 Dose: 0.5 mg Multivitamins (Theragran Tab*) 1 tab PO DAILY [facility] Last Admin: 06/23/17 08:06 Dose: 1 tab Nf: Arnica Gel [ (Homeopathic Product]) 1 dose TOPICAL DAILY PRN PRN Reason: PAIN - ARTHRITIS Pharmacy Profile Note (Lidocaine Patch Remove*) 1 note PATCH OFF 2100 [facility] Last Admin: 06/22/17 20:27 Dose: Not Given Tramadol HCl (Ultram*) 50 mg PO Q6H PRN PRN Reason: PAIN Last Admin: 06/21/17 01:53 Dose: 50 mg
--- NOTE | 2017-06-23 13:04 | PN ---
Subjective - Subjective Date of Service: 06/23/17 Subjective: Carlotta seems coherent today and we have not noted any further episodes of her taking her clothes off or getting on the floor, although she continues to position herself oddly in bed. She is going to groups and expresses an interest in going home after the weekend. She denies paranoia or AH. Objective - Appearance Appearance: Thin Framed Dysmorphic Features: No Hygiene: Normal Grooming: Fairly Well Kept - Behavior Psychomotor Activities: Normal Exhibits Abnormal Movement: No - Attitude and Relatedness Attitude and Relatedness: Cooperative Eye Contact: Fair - Speech Quality: Unpressured Latencies: Normal Quantity: Terse - Mood Patient's Decription of Mood: "Okay" - Affect Observed Affect: Unvariable Affect Consistent with: Euthymia - Thought Process Patient's Thought Process: Coherent Thought Content: No Passive Wish, No Suicidal Planning, No Homicidal Ideation, No Paranoid Ideation - Sensorium Experiencing Hallucinations: No, Sensorium is Clear Type of Hallucinations: Visual: No, Auditory: No, Command: No - Level of Consciousness Level of Consciousness: Alert Orientation: Yes Intact, Yes Orientated to Time, Yes Orientated to Place, Yes Orientated to Person - Impulse Control Impulse Control: Poor - Insight and Judgement Insight and Judgement: Impaired - Group Participation Particating in Group Activities: Yes - Medication Management Medication Management Adherence: Yes Assessment - Assessment Merits Inpatient Hospitalization: For Immediate Safety, For Stabilization Inpatient DSM-IV Dx: Schizophrenia Clinical Impression: 77 y.o. , AA female with a history of multiple psychiatric hospitalizations in the past for schizophrenia BIB taxi complaining of auditory hallucinations and paranoid delusions regarding people keeping her locked up against her will, as well as some limitations in self-care. Plan - Plan Treatment Plan: Name: CARLOTTA ESCOTO Birthdate: 1940 [id number] We have resumed oral aripiprazole 5mg PO qday and will allow some time to let this take effect. She is also on aripiprazole Maintena 200mg IM q4wks. PT/OT consults do not seem to support referral to subacute rehab. Will try to maximize outpatient supports, including visiting nursing services. Continue inpatient-level services. Continued Medication Management: Continue Outpt Medication Medications: Current Medications Acetaminophen (Tylenol Tab*) 650 mg PO Q4H PRN PRN Reason: PAIN or TEMP > 101 F Al Hydrox/Mg Hydrox/Simethicone (Maalox Plus*) 30 ml PO Q4H PRN PRN Reason: INDIGESTION Aripiprazole (Abilify Tab*) 5 mg PO DAILY [facility] Last Admin: 06/23/17 08:06 Dose: 5 mg Lidocaine (Lidoderm 5% Patch*) 1 patch TRANSDERM DAILY PRN PRN Reason: PAIN Last Admin: 06/21/17 01:47 Dose: 1 patch Lorazepam (Ativan Tab(*)) 0.5 mg PO BEDTIME PRN PRN Reason: ANXIETY Last Admin: 06/18/17 23:35 Dose: 0.5 mg Multivitamins (Theragran Tab*) 1 tab PO DAILY [facility] Last Admin: 06/23/17 08:06 Dose: 1 tab Nf: Arnica Gel [ (Homeopathic Product]) 1 dose TOPICAL DAILY PRN PRN Reason: PAIN - ARTHRITIS Pharmacy Profile Note (Lidocaine Patch Remove*) 1 note PATCH OFF 2100 [facility] Last Admin: 06/22/17 20:27 Dose: Not Given Tramadol HCl (Ultram*) 50 mg PO Q6H PRN PRN Reason: PAIN Last Admin: 06/21/17 01:53 Dose: 50 mg - Discharge Plan Discharge Plan: Inpatient Hospitalization Lab Results - Lab Results Lab Results: 06/21/17 06/22/17 12:39 11:00 Total Creatine Kinase 432 H Urine Color Yellow Urine Appearance Cloudy Urine pH 7.0 Ur Specific [place] 1.013 Urine Protein Negative Urine Ketones Negative Urine Blood Negative Urine Nitrate Negative Urine Bilirubin Negative Urine Urobilinogen Negative Ur Leukocyte Esterase 1+ H Urine WBC (Auto) Trace(0-5/hpf) Urine RBC (Auto) Absent Ur Squamous Epith Cells Present H Urine Bacteria Absent Urine Glucose Negative Urine Ascorbic Acid * H
[2017-06-23] MEDS: Lidocaine Patch REMOVE* 1 NOTE MISC PATCH OFF SCH (23:26)
[2017-06-24] MEDS: Vitamin THERAPEUTIC TAB PO SCH (08:13)
[2017-06-24] MEDS: ARIPiprazole TAB* 5 MG PO SCH (08:13)
[2017-06-24] MEDS: Lidocaine PATCH 5%* 1 PATCH TRANSDERM PRN (14:20)
[2017-06-24] MEDS ORDERED: LORazepam TAB(*) 0.5 MG PO PRN (15:18)
[2017-06-24] MEDS ORDERED: traMADol TAB* 50 MG PO PRN (15:19)
[2017-06-24] MEDS: Lidocaine Patch REMOVE* 1 NOTE MISC PATCH OFF SCH (20:12)
[2017-06-25] MEDS: ARIPiprazole TAB* 5 MG PO SCH (08:37)
[2017-06-25] MEDS: Vitamin THERAPEUTIC TAB PO SCH (08:38)
[2017-06-25] MEDS: Lidocaine Patch REMOVE* 1 NOTE MISC PATCH OFF SCH (20:44)
[2017-06-26] MEDS: ARIPiprazole TAB* 5 MG PO SCH (09:07)
[2017-06-26] MEDS: Vitamin THERAPEUTIC TAB PO SCH (09:07)
[2017-06-26] MEDS: Lidocaine PATCH 5%* 1 PATCH TRANSDERM PRN (09:09)
--- NOTE | 2017-06-26 11:56 | PN ---
[facility]: Group Therapy Note - Service Type Service Type: [id number] Group Psychotherapy - Cognitive Behavioral Group Therapy ( CBT):Patient attended CBT programming this morning and presented with flat affect that did not vary with discussion. Although responsive to direct prompts to respond to questions, patient did not engage in spontaneous conversation.
[2017-06-26 13:11] LABS: ABS Basophils 0.1 10^3/ul (0-0.2); ABS Eosinophils 0.1 10^3/ul (0-0.6); ABS Lymphocytes 1.8 10^3/ul (1.0-4.8); ABS Monocytes 0.4 10^3/ul (0-0.8); ABS Neutrophils 2.3 10^3/ul (1.5-7.7); ABS Nucleated RBC 0 10^3/ul; Eosinophil % 1.7 % (0-6); Hematocrit 36 % (35-47); Hemoglobin 11.1 g/dl (12.0-16.0); Lymphocyte % 38.8 % (25-47); Mean Corpuscular HGB Conc 31 g/dl (31-36); Mean Corpuscular Hemoglobin 23 pg (27-31); Mean Corpuscular Volume 75 fL (80-97); Mean Platelet Volume 9 um3 (7.4-10.4); Nucleated Red Blood Cells % 0; Platelet Count 227 10^3/ul (150-450); Red Blood Count 4.81 10^6/ul (4.0-5.4); Red Cell Distribution Width 16 % (10.5-15); White Blood Count 4.6 10^3/ul (3.5-10.8)
--- NOTE | 2017-06-26 13:41 | PN ---
Subjective - Subjective Date of Service: 06/26/17 Service Type: [id number] [facility] Subjective: This morning during a group Carlotta had what appeared to be a syncopal event, passing out into the arms of a peer and being unresponsive for several minutes while a CAT team code was called. She later came to and did not recall the event. She does endorse a remote history of seizures but not in years. Later at 1:00 PM we hold a family meeting with the patient and her son, Kingsley. She indicates that her neck has been hurting her and this precipitated the syncope. She was getting Botox injections from a clinician in [place] named Dr. Scherer , but that person is retired and not available any longer. She states she used to see local neurologist Dr. Chapin for this treatment, which is described as highly effective by the patient and her son, as recently as 1994. She denies SI or HI and displays no evidence of psychotic thought process. Objective - Appearance Appearance: Thin Framed Dysmorphic Features: No Hygiene: Normal Grooming: Well Kept - Behavior Psychomotor Activities: Normal Exhibits Abnormal Movement: No - Attitude and Relatedness Attitude and Relatedness: Cooperative Eye Contact: Fair - Speech Quality: Unpressured Latencies: Normal Quantity: Terse - Mood Patient's Decription of Mood: "Okay" - Affect Observed Affect: Unvariable Affect Consistent with: Euthymia - Thought Process Patient's Thought Process: Impoverished Thought Content: No Passive Wish, No Suicidal Planning, No Homicidal Ideation, No Paranoid Ideation - Sensorium Experiencing Hallucinations: No, Sensorium is Clear Type of Hallucinations: Visual: No, Auditory: No, Command: No - Level of Consciousness Level of Consciousness: Alert Orientation: Yes Intact, Yes Orientated to Time, Yes Orientated to Place, Yes Orientated to Person - Impulse Control Impulse Control: Tenuous - Insight and Judgement Insight and Judgement: Fair - Group Participation Particating in Group Activities: Yes - Medication Management Medication Management Adherence: Yes Assessment - Assessment Merits Inpatient Hospitalization: For Ongoing Evaluation Inpatient DSM-IV Dx: Schizophrenia Clinical Impression: 77 y.o. , AA female with a history of multiple psychiatric hospitalizations in the past for schizophrenia BIB taxi complaining of auditory hallucinations and paranoid delusions regarding people keeping her locked up against her will, as well as some limitations in self-care. Plan - Plan Treatment Plan: Name: CARLOTTA ESCOTO Birthdate: 1940 [id number] We have resumed oral aripiprazole 5mg PO qday and she has no evidence of further psychosis. She is also on aripiprazole Maintena 200mg IM q4wks (next due 07/04/17). PT/OT consults do not seem to support referral to subacute rehab. Will try to maximize outpatient supports, including visiting nursing services. Continue inpatient-level services. Will order EEG and Neuro consult for syncope. 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 Continued Medication Management: Different Medication Medications: Current Medications Acetaminophen (Tylenol Tab*) 650 mg PO Q4H PRN PRN Reason: PAIN or TEMP > 101 F Al Hydrox/Mg Hydrox/Simethicone (Maalox Plus*) 30 ml PO Q4H PRN PRN Reason: INDIGESTION Aripiprazole (Abilify Tab*) 5 mg PO DAILY [facility] Last Admin: 06/26/17 09:07 Dose: 5 mg Aripiprazole (Abilify Maintena (Nf)) 200 mg IM .MONTHLY ONE Stop: 07/04/17 09:01 Lidocaine (Lidoderm 5% Patch*) 1 patch TRANSDERM DAILY PRN PRN Reason: PAIN Last Admin: 06/26/17 09:09 Dose: 1 patch Lorazepam (Ativan Tab(*)) 0.5 mg PO BEDTIME PRN PRN Reason: ANXIETY Multivitamins (Theragran Tab*) 1 tab PO DAILY [facility] Last Admin: 06/26/17 09:07 Dose: 1 tab Nf: Arnica Gel [ (Homeopathic Product]) 1 dose TOPICAL DAILY PRN PRN Reason: PAIN - ARTHRITIS Pharmacy Profile Note (Lidocaine Patch Remove*) 1 note PATCH OFF 2100 [facility] Last Admin: 06/25/17 20:44 Dose: Not Given - Discharge Plan Discharge Plan: Inpatient Hospitalization Lab Results - Lab Results Lab Results: 06/26/17 06/26/17 06/26/17 12:08 12:43 12:43 WBC 4.6 RBC 4.81 Hgb 11.1 L Hct 36 MCV 75 L MCH 23 L MCHC 31 RDW 16 H Plt Count 227 MPV 9 Neut % (Auto) 49.5 Lymph % (Auto) 38.8 [place] % (Auto) 8.0 Eos % (Auto) 1.7 Baso % (Auto) 2.0 Absolute Neuts (auto) 2.3 Absolute Lymphs (auto) 1.8 Absolute Monos (auto) 0.4 Absolute Eos (auto) 0.1 Absolute Basos (auto) 0.1 Absolute Nucleated RBC 0 Nucleated RBC % 0 POC Glucose (mg/dL) 185 H Lactic Acid 1.2
[2017-06-26 15:17] LABS: EGFR Non-African American 57.2 (>60)
[2017-06-26 18:22] LABS: Urine Appearance Cloudy; Urine Blood Negative (Negative); Urine Color Yellow; Urine Ketones Negative (Negative); Urine Protein Negative (Negative); Urine Specific Gravity 1.011 (1.010-1.030); Urine Urobilinogen Negative (Negative)
[2017-06-26] MEDS: Lidocaine Patch REMOVE* 1 NOTE MISC PATCH OFF SCH (20:47)
[2017-06-27] MEDS: Vitamin THERAPEUTIC TAB PO SCH (08:24)
[2017-06-27] MEDS: ARIPiprazole TAB* 5 MG PO SCH (08:24)
[2017-06-27] MEDS: Lidocaine PATCH 5%* 1 PATCH TRANSDERM PRN (08:28)
[2017-06-27] MEDS: Lidocaine Patch REMOVE* 1 NOTE MISC PATCH OFF SCH (20:13)
--- NOTE | 2017-06-27 20:39 | CONS ---
NEUROLOGY CONSULTATION: DATE OF CONSULT: 06/27/17 LOCATION: Inpatient. REQUESTING PHYSICIAN: Dr. Hampton. REASON FOR CONSULT: Syncope versus seizure. HISTORY OF PRESENT ILLNESS: Brian Walton is a 77-year-old woman with a history of schizophrenia, treated with long-acting aripiprazole injection as well as a past history of a seizure 4 years ago, who experienced an episode of syncope while in a group setting yesterday. She reportedly was sitting in a group class when just before noon, she began to lean towards the right on to the patient next to her and that person had to hold her up to prevent her from falling. The recreational therapist, who witnessed the event reports that her eyes were half open, but appeared to be rolled up towards the top of her head. She was not responsive to voice at this point and the recreational therapist also helped to keep her sitting upright. She may have appeared diaphoretic during this time. There is no description of tonic-clonic movements or stiffening during this event. The clinical assessment team was called and by the time they arrived, she had come around and was answering questions. I spoke with Dr. Davenport, who was part of the response team, who indicated that she did not seem postictal after this event. She reports that she had a blackout episode approximately 4 years ago, but has had nothing since then. She believes that she was described to have whole body shaking at that time, but this information cannot be corroborated. She never took antiseizure medication. She denies any past history of seizures. She does indicate that she had meningitis as a baby or a toddler, but that she recovered well from this. She denies any history of febrile seizures or head injuries with loss of consciousness. She has a sister, who had seizures. She is admitted to the mental health unit because of decompensation of her psychiatric illness. Otherwise, she also has a history of spasmodic torticollis, for which she has been receiving Botox injections from a physician in [place]. This physician is reportedly retiring and she is due to see this person again in June, but Dr. Hampton also questioned whether she could be seen in our office for these injections where she some years ago was under the care of Dr. Chapin previously. PAST MEDICAL HISTORY: Spasmodic torticollis, schizophrenia, microcytic anemia, degenerative disk disease, hyperlipidemia. HOME MEDICATIONS: 1. Aripiprazole 2 mg daily. 2. Lidocaine patch. 3. Lorazepam 0.5 mg at bedtime. 4. Tramadol 50 mg as needed. 5. Multivitamin. 6. Aripiprazole 200 mg IM monthly. Her current hospital medications include the same as noted in her home medications except that she is now taking 5 mg of aripiprazole by mouth daily. ALLERGIES: AMITRIPTYLINE, TIZANIDINE, ASPIRIN, BACLOFEN, BENZTROPINE, TRIHEXYPHENIDYL, RISPERDAL, IBUPROFEN. FAMILY HISTORY: She indicates that her mother of bladder cancer and her father of myocardial infarction. Sister with seizures as mentioned above, another sister had a stroke. SOCIAL HISTORY: She lives alone with some home services. She has 3 children. 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 REVIEW OF SYSTEMS: She denies any chest pain, palpitations, shortness of breath , cough, constipation, diarrhea, abdominal pain, joint pain, swelling, new skin rashes. PHYSICAL EXAM: Vital Signs: Temperature 99.3, blood pressure 108/41, heart rate 84, oxygen saturation 99% on room air. Her vital signs around the time of this event are recorded at 12:18 p.m. yesterday with a blood pressure of 90/46 and a heart rate of 125, 2 minutes later blood pressure recorded as 142/102 with a heart rate of 75. Her oxygen saturation was 100% at both time points. On general examination, she was lying on her right side in bed when I entered the room, but she woke easily and was cooperative. She is in no acute distress. Her heart is in a regular rate and rhythm with a soft systolic ejection murmur. Her lungs are clear to auscultation bilaterally. She is noted to have laterocollis to the right as well as some occasional retrocollis with associated dystonic tremor of her head. She has hypertrophy of her left sternocleidomastoid and her right trapezius. She is thin and there is no joint swelling or erythema. On neurologic exam, she is fully awake and alert. She is able to state her birthday correctly, but stated that she was 78 years old. She was oriented to the current month. There was no clear dysarthria or aphasia. On cranial nerve exam, pupils were equal, round, and reactive from 3 to 2 mm bilaterally. There is arcus senilis present. Versions are full without nystagmus. Conteh are full to confrontation. Facial sensation and musculature is full and symmetric. Hearing is intact to finger rub. The palate elevates symmetrically and the tongue is midline. On motor exam, she has an intermittent postural and intention tremor in the hands bilaterally. Her tone appears to be increased versus paratonia in the upper and lower extremities. Strength was full throughout. Sensation was intact to light touch in the upper and lower extremities. Reflexes were 2+ throughout with the exception of the ankles, which were difficult to elicit. The toes were equivocal. [id number]-[id number] showed no ataxia, but she has intention tremor bilaterally. Her gait is narrow-based and stable. DIAGNOSTIC STUDIES/LAB DATA: CBC collected yesterday notable for hemoglobin of 11.1, hematocrit of 36, which is stable from admission on 06/16/17. Her CMP yesterday was overall unremarkable aside from a non-fasting glucose of 135. Her urinalysis showed 1+ leukocyte esterase, 2+ white blood cells with no nitrites. I reviewed her brain CT, which was obtained on 06/16/17, which was interpreted to be normal, but I question whether there is a small area of encephalomalacia in the external capsule on the left. Her EEG this morning showed no evidence of epileptiform abnormalities. IMPRESSION AND PLAN: Brian Walton is a 77-year-old woman with a history of schizophrenia and a questionable history of a past seizure 4 years ago, who had an episode of loss of consciousness yesterday while sitting in a group on the behavioral health unit. Given the description of this event and her vital signs around the time of the event, I am more suspicious for a syncopal event than a seizure. She was hypotensive and tachycardic when her vitals were first taken. I would consider longer-term cardiac monitoring whether that be with telemetry or a Holter monitor to detect any intermittent arrhythmias which would put her at risk for this, especially given her age. Her EEG did not show any epileptiform abnormalities nor any focal abnormalities and I would not suggest starting an antiseizure medication at this point especially given the more likely diagnosis of syncope. I suggest continuing to monitor her for any further events, then would obtain vital signs if she were to have another one of these to see if it is consistent with that which was previously noted. I would also make note of how long the episode lasts and whether there is any shaking more indicative of a seizure or a postictal period. I would also put the patient in the supine position if she were to have another one of these events as if it is neurocardiogenic syncope, she may be more likely to recover quickly if she is put in the supine position. However, bradycardia is typically noted with neurocardiogenic syncope and this is not the case with her. With respect to her spasmodic torticollis, I note that she was referred by Dr. Bradley to our office and had an appointment with Dr. Chapin scheduled for 06/16, but I believe that was canceled because she was here in the emergency department for admission through behavioral health unit. I will speak with my office as to whether this appointment can be rescheduled for her, though it sounds like she has a plan in place for Botox in June and then will need to find someone to continue that for her going forward. Thank you for this consultation. If I can a further assistance during the patient's hospitalization, please do not hesitate to contact me. [id number]/[facility] #: [id number] JUNE
--- NOTE | 2017-06-28 02:47 | EEG ---
ELECTROENCEPHALOGRAPHY: DATE OF STUDY: 06/27/17 - ROOM #206 LOCATION: The patient is an inpatient. ORDERING PHYSICIAN: Dr. Hampton. HISTORY: This is a 77-year-old woman who had an episode of syncope versus seizure yesterday. She was reported to be seated in a chair in a group setting when she began to lean towards one side and had to be propped up by another patient. There was no report of extremity shaking and she came around after approximately a minute and a half without any clear postictal period. EEG is requested to evaluate for epileptiform abnormalities. MEDICATIONS: 1. Lorazepam. 2. Aluminum hydroxide. 3. Acetaminophen. 4. Theragran. 5. Aripiprazole. 6. Lidocaine patch. REPORT: The waking background showed appropriate organization with clearly defined anterior to posterior voltage and frequency gradients. There was a well defined posterior dominant rhythm of 8 Hz, which was symmetrical and showed normal reactivity. Anteriorly, there was an expected pattern of lower voltage, irregular, mixed faster frequencies. There was frequent motion artifact in the posterior head regions as the patient has a dystonic head tremor. Photic stimulation and hyperventilation were not performed. The patient did not become drowsy during the study. Throughout the recording, there were no epileptiform discharges, focal features , paroxysmal features or significant hemispheric asymmetries. IMPRESSION: This is a mildly abnormal waking EEG due to the presence of a slow posterior dominant rhythm. These findings are suggestive of mild, nonspecific diffuse encephalopathy. There are no epileptiform abnormalities and no focal findings are seen. [id number]/[facility] #: [id number] MTDD
[2017-06-28] MEDS: ARIPiprazole TAB* 5 MG PO SCH (09:27)
[2017-06-28] MEDS: Vitamin THERAPEUTIC TAB PO SCH (09:27)
[2017-06-28] MEDS: Lidocaine PATCH 5%* 1 PATCH TRANSDERM PRN (09:28)
--- NOTE | 2017-06-28 14:44 | PN ---
Subjective - Subjective Date of Service: 06/28/17 Service Type: 83051 Hosp care 15 min low complexity Subjective: Carlotta feels well today, has been going to groups and participating, and has not experienced any further episodes of unresponsiveness. She denies SI or HI and feels ready to return to her apartment. I spoke with neurologist Jonelle Villarreal yesterday who evaluated the patient and looked at her EEG results. She does not feel like Monday's event was a seizure and opines that the etiology was likely to have been syncopal in nature. I also spoke with the patient's son , Kingsley, who indicates that Monday would be preferable for him to get out of work to come pick her up. We've seen no evidence of paranoia or hallucinations since one to two days s/p admission. Objective - Appearance Appearance: Thin Framed Dysmorphic Features: No Hygiene: Normal Grooming: Fairly Well Kept - Behavior Psychomotor Activities: Normal Exhibits Abnormal Movement: Yes - Attitude and Relatedness Attitude and Relatedness: Cooperative Eye Contact: Fair - Speech Quality: Unpressured Latencies: Normal Quantity: Terse - Mood Patient's Decription of Mood: "Good" - Affect Observed Affect: Unvariable Affect Consistent with: Euthymia - Thought Process Patient's Thought Process: Coherent Thought Content: No Passive Wish, No Suicidal Planning, No Homicidal Ideation, No Paranoid Ideation - Sensorium Experiencing Hallucinations: No, Sensorium is Clear Type of Hallucinations: Visual: No, Auditory: No, Command: No - Level of Consciousness Level of Consciousness: Alert Orientation: Yes Intact, Yes Orientated to Time, Yes Orientated to Place, Yes Orientated to Person - Impulse Control Impulse Control: Tenuous - Insight and Judgement Insight and Judgement: Fair - Group Participation Particating in Group Activities: Yes - Medication Management Medication Management Adherence: Yes Assessment - Assessment Merits Inpatient Hospitalization: Consolidate Improvements, Pending Safe DC Plan Inpatient DSM-IV Dx: Schizophrenia Clinical Impression: 77 y.o. , AA female with a history of multiple psychiatric hospitalizations in the past for schizophrenia BIB taxi complaining of auditory hallucinations and paranoid delusions regarding people keeping her locked up against her will, as well as some limitations in self-care. Plan - Plan Treatment Plan: Name: CARLOTTA ESCOTO Birthdate: 1940 [id number] We have resumed oral aripiprazole 5mg PO qday and she has no evidence of further psychosis. She is also on aripiprazole Maintena 200mg IM q4wks (next due 07/04/17). As per neurology recommendations, we will consult the medicine service for evaluation of the patient's likely syncope. Carlotta will continue to see Dr. Scherer in [place] for IM Botox therapy for chronic spastic tortocolis. PT/OT consults do not seem to support referral to subacute rehab. Will try to maximize outpatient supports, including visiting nursing services. [employer] d/c to home on Monday (06/30). Continued Medication Management: Continue Outpt Medication Medications: Current Medications Acetaminophen (Tylenol Tab*) 650 mg PO Q4H PRN PRN Reason: PAIN or TEMP > 101 F Al Hydrox/Mg Hydrox/Simethicone (Maalox Plus*) 30 ml PO Q4H PRN PRN Reason: INDIGESTION Aripiprazole (Abilify Tab*) 5 mg PO DAILY [facility] Last Admin: 06/28/17 09:27 Dose: 5 mg Aripiprazole (Abilify Maintena (Nf)) 200 mg IM .MONTHLY ONE Stop: 07/04/17 09:01 Lidocaine (Lidoderm 5% Patch*) 1 patch TRANSDERM DAILY PRN PRN Reason: PAIN Last Admin: 06/28/17 09:28 Dose: 1 patch Lorazepam (Ativan Tab(*)) 0.5 mg PO BEDTIME PRN PRN Reason: ANXIETY Multivitamins (Theragran Tab*) 1 tab PO DAILY [facility] Last Admin: 06/28/17 09:27 Dose: 1 tab Nf: Arnica Gel [ (Homeopathic Product]) 1 dose TOPICAL DAILY PRN PRN Reason: PAIN - ARTHRITIS Pharmacy Profile Note (Lidocaine Patch Remove*) 1 note PATCH OFF [address] [facility] Last Admin: 06/27/17 20:13 Dose: 1 note - Discharge Plan Discharge Plan: Inpatient Hospitalization Lab Results - Lab Results Lab Results: 06/26/17 06/26/17 06/26/17 12:08 12:43 12:43 WBC 4.6 RBC 4.81 Hgb 11.1 L Hct 36 MCV 75 L MCH 23 L MCHC 31 RDW 16 H Plt Count 227 MPV 9 Neut % (Auto) 49.5 Lymph % (Auto) 38.8 Cotton % (Auto) 8.0 Eos % (Auto) 1.7 Baso % (Auto) 2.0 Absolute Neuts (auto) 2.3 Absolute Lymphs (auto) 1.8 Absolute Monos (auto) 0.4 Absolute Eos (auto) 0.1 Absolute Basos (auto) 0.1 Absolute Nucleated RBC 0 Nucleated RBC % 0 Sodium Potassium Chloride Carbon Dioxide Anion Gap BUN Creatinine Est GFR ( Amer) Est GFR (Non-Af Amer) BUN/Creatinine Ratio Glucose POC Glucose (mg/dL) 185 H Lactic Acid 1.2 Calcium Total Bilirubin AST ALT Alkaline Phosphatase Total Protein Albumin Globulin Albumin/Globulin Ratio Urine Color Urine Appearance Urine pH Ur Specific Noti Urine Protein Urine Ketones Urine Blood Urine Nitrate Urine Bilirubin Urine Urobilinogen Ur Leukocyte Esterase Urine WBC (Auto) Urine RBC (Auto) Ur Squamous Epith Cells Urine Bacteria Urine Glucose Urine Ascorbic Acid 06/26/17 06/26/17 14:54 16:00 WBC RBC Hgb Hct MCV MCH MCHC RDW Plt Count MPV Neut % (Auto) Lymph % (Auto) Cotton % (Auto) Eos % (Auto) Baso % (Auto) Absolute Neuts (auto) Absolute Lymphs (auto) Absolute Monos (auto) Absolute Eos (auto) Absolute Basos (auto) Absolute Nucleated RBC Nucleated RBC % Sodium 138 Potassium 3.8 Chloride 104 Carbon Dioxide 28 Anion Gap 6 BUN 14 Creatinine 0.95 Est GFR ( Amer) 73.6 Est GFR (Non-Af Amer) 57.2 BUN/Creatinine Ratio 14.7 Glucose 135 H POC Glucose (mg/dL) Lactic Acid Calcium 9.2 Total Bilirubin 0.40 AST 19 ALT 14 Alkaline Phosphatase 57 Total Protein 7.1 Albumin 4.0 Globulin 3.1 Albumin/Globulin Ratio 1.3 Urine Color Yellow Urine Appearance Cloudy Urine pH 5.0 Ur Specific Noti 1.011 Urine Protein Negative Urine Ketones Negative Urine Blood Negative Urine Nitrate Negative Urine Bilirubin Negative Urine Urobilinogen Negative Ur Leukocyte Esterase 1+ H Urine WBC (Auto) 2+(11-20/hpf) H Urine RBC (Auto) Absent Ur Squamous Epith Cells Present H Urine Bacteria Absent Urine Glucose Negative Urine Ascorbic Acid * H
[2017-06-28] MEDS: Lidocaine Patch REMOVE* 1 NOTE MISC PATCH OFF SCH (20:18)
--- NOTE | 2017-06-28 22:24 | CONS ---
CC: Dr. Bradley * MEDICAL CONSULTATION: DATE OF CONSULT: 06/28/17 HISTORY OF PRESENT ILLNESS: This 77-year-old woman was seen by me due to an episode of syncope 2 days before. She is on the psychiatric unit, receiving treatment. Two days before, there was a cath call team, she had passed out while sitting down in the sofa. The patient states she cannot recall this event at all, but it was aware that it happened. She cannot say how long she was out. Apparently, she was sitting down, she became unresponsive, people caught her and kept her from falling on the floor. She did not wet herself or bite her tongue. There was no shaking. The patient states she has never had similar episode before. She denied having any lightheaded or dizzy spells. No palpitations, shortness of breath, or chest from. She has no cardiac history. She does state that she lost 20 or 30 pounds in the last 6 months, which she describes is doing to neglect. She states her appetite is good now and she thinks she has gained 10 pounds since being admitted to the [facility]. She has no other physical complaints. PAST MEDICAL HISTORY: She had tubal ligation. She has 1 son, named Kingsley. FAMILY HISTORY: Unremarkable. SOCIAL HISTORY: Kingsley is her healthcare proxy. She has never smoked. She does not abuse alcohol. She lives by herself. REVIEW OF SYSTEMS: Other than the weight loss mentioned above and psychiatric issues is unremarkable. PHYSICAL EXAMINATION: Height 5 feet 0 inches, weight 97 pounds. Blood pressure 116/50, heart rate 84, respiration 16, O2 sat 100% on room air. She is a well-developed, well-nourished elderly woman in no acute distress. She has somewhat of a blunted affect, but is quite cooperative and seems to have good memory. HEENT is unremarkable. No signs of head trauma. Head is normocephalic. Pupils are equal and reactive. Neck is supple. No JVD, adenopathy or thyromegaly. Heart and lungs are clear to auscultation and percussion. Abdomen is soft. No masses, organomegaly, or tenderness. Bowel sounds are normal. There is no pedal edema. No calf tenderness. Skin is warm and dry and intact. Joints show no significant deformity or swelling. IMPRESSION AND PLAN: The patient had an accelerated episode of syncope. She will have an echocardiogram on 06/29/17. I note she is in bigeminal rhythm on my examination. I understand the plans of her to be discharged on 06/30/17. I would recommend outpatient 24 hour Holter monitoring with further investigations to be considered if she has any further symptoms of syncope or presyncope. Thank you for allowing me to see your patient in consultation. [id number]/[facility] #: [id number] JUNE
[2017-06-29] MEDS: ARIPiprazole TAB* 5 MG PO SCH (07:59)
[2017-06-29] MEDS: Vitamin THERAPEUTIC TAB PO SCH (07:59)
[2017-06-29 08:18] VITALS: BP 107/57
--- NOTE | 2017-06-29 11:04 | ECHO ---
Patient: CARLOTTA ESCOTO Rec#: [id number] : 1940 Date: 06/29/2017 Age: 77y Height: 152.4 cm / 60.0 in Weight: 44 kg / 97.0 lbs Sex: F BSA: 1.37 Room#: [facility] Admit Date#: 06/17/2017 Type: Inpatient Referring: Severiano Smiley MD Reading: Aguila Robert MD [employer] Ventilator: Azucena ScottFLOR CC: Ronni Bradley MD Transthoracic Echocardiogram Indication: Syncope BP: 116/50 HR: 90 Rhythm: NSR with PACs Findings History: HLD, DJD, MRSA, microcytic anemia. Technical Comments: The study quality is fair. The study is technically limited due to patient body habitus. Completed at 1050. Left Ventricle: The left ventricular chamber size is decreased. There is no left ventricular hypertrophy. Global left ventricular wall motion and contractility are within normal limits. There is normal left ventricular systolic function. The estimated ejection fraction is 60-65%. The assessment of diastolic function is non-diagnostic. Left Atrium: The left atrial chamber size is normal. Right Ventricle: Moderator Band present. The right ventricular cavity size is normal. The right ventricular global systolic function is normal. Right Atrium: The right atrial cavity size is normal. A prominent eustachian valve is noted in the right atrium. There is evidence of an atrial septal aneurysm. Aortic Valve: The aortic valve is trileaflet. There is no evidence of aortic valve thickening. There is mild aortic regurgitation. There is no evidence of aortic stenosis. Mitral Valve: The mitral valve leaflets are mildly thickened. There is a trace of mitral regurgitation. There is no evidence of mitral stenosis. Tricuspid Valve: The tricuspid valve leaflets are normal. There is mild tricuspid regurgitation. The right ventricular systolic pressure is estimated at 28 mmHg. No pulmonary hypertension is noted. There is no tricuspid stenosis. Pulmonic Valve: The pulmonic valve appears normal. There is mild pulmonic regurgitation. There is no pulmonic stenosis. Pericardium: There is no significant pericardial effusion. Aorta: There is no dilatation of the ascending aorta. There is no dilatation of the aortic arch. The aortic root is normal in size. Pulmonary Artery: The main pulmonary artery appears normal. Venous: The inferior vena cava appears normal in size. There is a greater than 50% respiratory change in the inferior vena cava dimension. Conclusions There is normal left ventricular systolic function. The estimated ejection fraction is 60-65%. No significant valvular disease: There is mild aortic regurgitation. There is a trace of mitral regurgitation. There is mild tricuspid regurgitation. No pulmonary hypertension is noted. There is mild pulmonic regurgitation. There is evidence of an atrial septal aneurysm. No reports of prior studies offered for comparison. Measurements Name Value Normal Range RVIDd (AP) 2D 2.6 cm (0.9 - 2.6) RVDdMajor (2D) 3.5 cm (2.2 - 4.4) RAd ISD 4CH 4.1 cm (3.4 - 4.9) RA (A4C)W 3.6 cm (2.9 - 4.6) IVSd (2D) 0.9 cm (0.6 - 1) LVPWd (2D) 0.8 cm (0.6 - 1) LVIDd (2D) 3.1 cm (3.6 - 5.4) LVIDs (2D) 2.6 cm - LV FS (2D) 15 % (25 - 45) Aortic Annulus 1.7 cm (1.4 - 2.6) Ao root diameter (2D) 2.7 cm (2.1 - 3.5) Ascending Ao 2.8 cm (2.1 - 3.4) Aortic arch 1.9 cm (1.8 - 3.4) LA dimension (AP) 2D 2.7 cm (2.3 - 3.8) LAd ISD 4CH 4.5 cm (2.9 - 5.3) LA ISD 4CH W 4.2 cm (2.5 - 4.5) Name Value Normal Range LA ESV SP 4CH (A/L) 41 ml - LA ESV SP 2CH (A/L) 36 ml - LA ESV BP (A/L) 39 ml - LA ESV BP (A/L) index 28 ml/m2 - LA ESV SP 4CH (MOD) 35 ml - LA ESV SP 2CH (MOD) 33 ml - Name Value Normal Range MV E-wave Vmax 0.59 m/sec - MV deceleration time 123.1 msec - MV A-wave Vmax 0.75 m/sec - MV E:A ratio 0.79 ratio - LV septal e' Vmax 0.06 m/sec - LV lateral e' Vmax 0.09 m/sec - LV E:e' septal ratio 9.83 ratio - LV E:e' lateral ratio 6.56 ratio - Name Value Normal Range AV Vmax 1.22 m/sec - AV VTI 20.91 cm - AV peak gradient 6 mmHg - AV mean gradient 3.01 mmHg - LVOT Vmax 1.04 m/sec - LVOT VTI 21.43 cm - LVOT peak gradient 4.46 mmHg - LVOT mean gradient 2.5 mmHg - AR PHT 424 msec - AR peak gradient 33.7 mmHg - ANTELMO Vmax 0.64 m/sec - Name Value Normal Range TR Vmax 2.5 m/sec - TR peak gradient 25 mmHg - RAP 3 mmHg - RVSP 28 mmHg - IVC diameter 0.92 cm - Name Value Normal Range PV Vmax 0.97 m/sec - PV peak gradient 3.76 mmHg - DE end-diastolic Vmax 0.86 m/sec -
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
[2017-07-08] MEDS ORDERED: Aripiprazole Maintena (NF) 300 MG SYRINGE IM ONE (09:00)
== END 2017-06-29 09:05 | disposition short-term general hospital (02) | DRG 885 ==
LOC: ED 10:20 → BSU 06-17 01:34
PROVIDERS: ADMIT Psychiatry & Neurology Psychiatry; ATTEND Internal Medicine
PROC: GZHZZZZ Group Psychotherapy (ICD-10-PCS; principal; 2017-06-17)
PROC: 4A10X4Z Monitoring of Central Nervous Electrical Activity, External Approach (ICD-10-PCS; 2017-06-28)
DX: F20.9 Schizophrenia, unspecified (principal); I95.9 Hypotension, unspecified; R56.9 Unspecified convulsions; G24.8 Other dystonia; R55 Syncope and collapse; M43.6 Torticollis; E78.5 Hyperlipidemia, unspecified; R53.83 Other fatigue; Z80.52 Family history of malignant neoplasm of bladder; R00.0 Tachycardia, unspecified; M81.0 Age-related osteoporosis without current pathological fracture; F41.0 Panic disorder [episodic paroxysmal anxiety]; Z98.51 Tubal ligation status; Z87.891 Personal history of nicotine dependence; Z88.8 Allergy status to other drugs, medicaments and biological substances; Z87.440 Personal history of urinary (tract) infections; Z86.14 Personal history of Methicillin resistant Staphylococcus aureus infection; Z82.49 Family history of ischemic heart disease and other diseases of the circulatory system
CPT/HCPCS: 36415; 70450; 71045; 80053; 80061; 80307; 80320; 80329; 81003; 81015; 82550; 83036; 83605; 84443; 84484; 85025; 87086; 90847; 90853; 93005; 95816; 99222; 99231; 99238; 99283; A9270-GY; G0480

== ENCOUNTER 2017-06-29 08:29 | Observation (INO) | payer MEDICARE, MEDICAID ==
[2017-06-29] MEDS ORDERED: LORazepam TAB(*) 0.5 MG PO PRN (09:07)
[2017-06-29] MEDS: ARIPiprazole TAB* 5 MG PO SCH (10:28)
[2017-06-29] MEDS: Lidocaine PATCH 5%* 1 PATCH TRANSDERM SCH (10:59)
[2017-06-29] MEDS: Enoxaparin(*) 30 MG/0.3 ML SYR SUBCUT SCH (10:59)
--- NOTE | 2017-06-29 15:53 | ADMNOTE ---
Subjective Date of Service: 06/29/17 Interval History: ADMISSION HISTORY AND PHYSICAL EXAM: Allergies Allergy/AdvReac Type Severity Reaction Status Date / Time MS Amitriptyline Allergy Intermediate Tachycardia Verified 11/18/15 16:55 [Amitriptyline] MS Tizanidine [Tizanidine] Allergy Intermediate Swelling Verified 11/18/15 16:55 MS Aspirin [ASA] Allergy Mild GI Upset Verified 11/18/15 16:55 MS Baclofen [Baclofen] Allergy Mild GI Upset Verified 11/18/15 16:55 MS Benztropine [Benztropine] Allergy Mild GI Upset Verified 11/18/15 16:55 MS Ibuprofen [From Motrin] Allergy Mild GI Upset Verified 11/18/15 16:55 MS Trihexyphenidyl Allergy Unknown GI Upset Verified 11/18/15 16:55 [From Artane] MS Risperidone AdvReac Severe NMS Verified 11/18/15 16:55 [From Risperdal] Home Medications Medication Instructions Recorded Confirmed Type Homeopathic Products [Arnica Gel] 1 applic TOPICAL DAILY PRN 02/08/13 06/16/17 History Aripiprazole Maintena (NF) 200 mg IM Q30D 06/16/17 06/16/17 History [Abilify Maintena (NF)] Cyanocobalamin [Vitamin B-12] 50 mcg PO DAILY 06/16/17 06/16/17 History LORazepam TAB(*) [Ativan 0.5 MG 0.5 mg PO BEDTIME PRN 06/16/17 06/16/17 History TAB (*)] Lidocaine PATCH 5%* [Lidoderm 5% 1 patch TRANSDERM DAILY PRN 06/16/17 06/16/17 History Patch*] Rimabotulinumtoxinb [Myobloc] 3 ml IM Q90D 06/16/17 06/16/17 History traMADol TAB* [Ultram*] 50 mg PO Q6HR PRN 06/16/17 06/29/17 History HPI: The patient was admitted to the [facility]17 for decompensated schizophrenia. She had 2 episodes of syncope there, one 3 days ago and one this AM, both while sitting. With the second episode she felt things going conde. No shaking, incontinence or tongue-biting, no post-ictal period. Otherwise she has been doing very well in the [facility] and plans were for her to be discharged 06/30. Social History: Findings - Lives alone. No tobacco Past Medical History: Findings - Tubal ligation. One son. Review of Systems - Measurements Intake and Output: Intake and Output Last 24 Hours 06/27/17 06/28/17 06/29/17 06/30/17 06:59 06:59 06:59 06:59 Intake Total 240 Balance 240 Weight 98 lb Intake: Oral 240 Other: # Bowel Movements 0 Estimated Stool Amount Small Objective Active Medications: Aripiprazole (Abilify Maintena (Nf)) 200 mg IM Q28D [facility] Aripiprazole (Abilify Tab*) 5 mg PO DAILY [facility] Last Admin: 06/29/17 10:28 Dose: Not Given Enoxaparin Sodium (Lovenox(*)) 30 mg SUBCUT Q24H [facility] Last Admin: 06/29/17 10:59 Dose: 30 mg Lidocaine (Lidoderm 5% Patch*) 1 patch TRANSDERM DAILY [facility] Last Admin: 06/29/17 10:59 Dose: 1 patch Lorazepam (Ativan Tab(*)) 0.5 mg PO BEDTIME PRN PRN Reason: ANXIETY Pharmacy Profile Note (Lidocaine Patch Remove*) 1 note N/A 2100 [facility] Vital Signs - 8 hr 06/29/17 06/29/17 06/29/17 08:53 11:39 13:30 Temperature 97.6 F 98.5 F 100.4 F Pulse Rate 69 79 85 Respiratory 16 16 18 Rate Blood Pressure 118/48 106/68 118/74 (mmHg) O2 Sat by Pulse 100 100 98 Oximetry 06/29/17 06/29/17 06/29/17 13:50 13:52 13:54 Temperature Pulse Rate 92 95 106 Respiratory Rate Blood Pressure 124/59 135/68 129/74 (mmHg) O2 Sat by Pulse Oximetry 06/29/17 15:38 Temperature 98.0 F Pulse Rate 71 Respiratory 20 Rate Blood Pressure 121/65 (mmHg) O2 Sat by Pulse 100 Oximetry Oxygen Devices in Use Now: None Microbiology and Other Data: Microbiology 06/29/17 09:25 Nasal Screen MRSA (PCR)(HIMANSHU) - Final Nasal Mrsa Not Detected Assess/Plan/Problems-Billing Assessment: - Patient Problems (1) Syncope Current Visit: Yes Status: Acute Code(s): R55 - SYNCOPE AND COLLAPSE SNOMED Code(s): 195398108 Comment: Echo unremarkable. Continue tele 24 hrs. Consider outpt long-term drapery worker. (2) Schizophrenia Current Visit: Yes Status: Acute Code(s): F20.9 - SCHIZOPHRENIA, UNSPECIFIED SNOMED Code(s): 81054156 Comment: Treatment and fup discussed with her son 06/29. He will make sure she keeps her appt next week for IM aripiprazole.
[2017-06-29] MEDS ORDERED: Lidocaine Patch REMOVE* 1 NOTE MISC SCH (21:00)
[2017-06-30] MEDS: ARIPiprazole TAB* 5 MG PO SCH (09:58)
[2017-06-30] MEDS: Enoxaparin(*) 30 MG/0.3 ML SYR SUBCUT SCH (09:58)
[2017-06-30] MEDS: Lidocaine PATCH 5%* 1 PATCH TRANSDERM SCH (09:59)
[2017-06-30] MEDS ORDERED: Acetaminophen TAB* 325 MG PO PRN (11:42)
[2017-06-30 12:24] VITALS: BP 103/46
--- NOTE | 2017-06-30 21:56 | DS ---
CC: Dr. Bradley. DISCHARGE SUMMARY: DATE OF ADMISSION: 06/29/17 DATE OF DISCHARGE: 06/30/17 HOSPITAL COURSE: This 77-year-old woman was admitted because of syncope. She was admitted to the [facility] unit on 06/17/17. She was treated for schizophrenia. She did well; however, she had the syncopal episode I believe on 06/19/17 and also on the 06/29/17 early in the morning, both episodes w hile sitting. They were witnessed. She did not have any seizure-like activity, she does not recall one episode, the second episode she said she recalled going lovell. She felt okay after waking up. Th ere was no postictal state. There was no tongue biting or incontinence. Her orthostatic signs were fine. Echocardiogram was unremarkable. She was monitored on telemetry. She had some atrial bigeminy and in sinus arrhythmia, but no significant arrhythmias. She felt good on the morning of discharge. Her schizophrenia is well treated. She had been planned to be discharg ed from the [facility] unit this day in any case. Her aripiprazole has been increased to 5 mg daily in addition to the 200 mg IM dose that has also bee n up to every 28 days. I believe they have tried to extend it every 5 or 6 weeks. I spoke with her son on 06/29/17. He will make sure she follows up with the mental health clinic and we will verify the date of her next injection next week. In terms of her syncope, I would consider long-term outpatient cardiac monitoring for her. FINAL DIAGNOSES: 1. Syncope. 2. Schizophrenia. DISCHARGE MEDICATIONS: 1. Aripiprazole 200 mg IM every 28 days last dose one 06/07/17. 2. Aripiprazole 5 mg daily. 3. Arnica gel as prescribed. 4. Tramadol as prescribed. 5. Lorazepam 0.5 mg h.s. p.r.n. 6. Lidocaine patch as prescribed. 7. Vitamin B12, 50 mcg daily. 8. Myobloc for her torticollis 3 mL IM every 90 days. [id number]/[facility] #: [id number]
[2017-07-05] MEDS ORDERED: Aripiprazole Maintena (NF) 300 MG SYRINGE IM SCH (09:00)
== END 2017-06-30 13:25 | disposition home or self-care (01) ==
LOC: MEDTELE 08:46 → UNDOADMOB 08:46 → MEDTELE 09:05
PROVIDERS: ADMIT Internal Medicine; ATTEND Internal Medicine
DX: R55 Syncope and collapse (principal); F20.9 Schizophrenia, unspecified; Z88.6 Allergy status to analgesic agent
CPT/HCPCS: 87641; 93306; A9270-GY; G0378; J1650

== ENCOUNTER 2017-07-05 16:11 | Inpatient (IN) | payer MEDICARE, MEDICAID ==
[2017-07-05] MEDS ORDERED: Benztropine INJ* 1 MG/ML 2 ML AMP SLOW PUSH ONE (16:32)
[2017-07-05 17:02] LABS: ABS Basophils 0.1 10^3/ul (0-0.2); ABS Eosinophils 0 10^3/ul (0-0.6); ABS Monocytes 0.5 10^3/ul (0-0.8); ABS Neutrophils 5.6 10^3/ul (1.5-7.7); ABS Nucleated RBC 0 10^3/ul; Eosinophil % 0.1 % (0-6); Hematocrit 36 % (35-47); Hemoglobin 11.3 g/dl (12.0-16.0); Lymphocyte % 14.4 % (25-47); Mean Corpuscular HGB Conc 32 g/dl (31-36); Mean Corpuscular Hemoglobin 23 pg (27-31); Mean Corpuscular Volume 74 fL (80-97); Mean Platelet Volume 9 um3 (7.4-10.4); Nucleated Red Blood Cells % 0.1; Platelet Count 254 10^3/ul (150-450); Red Blood Count 4.84 10^6/ul (4.0-5.4); Red Cell Distribution Width 16 % (10.5-15)
[2017-07-05 17:03] LABS: White Blood Count 7.2 10^3/ul (3.5-10.8)
[2017-07-05 17:22] LABS: EGFR Non-African American 55.2 (>60)
[2017-07-05] MEDS ORDERED: LORazepam TAB(*) 0.5 MG PO PRN (20:25)
[2017-07-05] MEDS ORDERED: Al Hydrox/Mg Hydrox/Simet LIQ* 30 ML UDC PO PRN (20:26)
[2017-07-06] MEDS: Vitamin THERAPEUTIC TAB PO SCH (09:47)
[2017-07-06] MEDS: ARIPiprazole TAB* 5 MG PO SCH (09:47)
[2017-07-06] MEDS ORDERED: Aripiprazole Maintena (NF) 300 MG SYRINGE IM SCH (11:00)
[2017-07-06] MEDS: Lidocaine PATCH 5%* 1 PATCH TRANSDERM SCH (12:39)
--- NOTE | 2017-07-06 16:40 | PN ---
MHU: Group Therapy Note - Service Type Service Type: 16182 Group Psychotherapy - Medication Education Group: Patient was attentive and participatory in group, and remained in good behavioral control. Patient expressed positive insights regarding relevant treatment interventions. Patient stated understanding of material discussed and had appropriate questions.
[2017-07-06] MEDS: Lidocaine Patch REMOVE* 1 NOTE MISC SCH (20:21)
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
[2017-07-07] MEDS: ARIPiprazole TAB* 5 MG PO SCH (08:00)
[2017-07-07] MEDS: Vitamin THERAPEUTIC TAB PO SCH (08:01)
[2017-07-07] MEDS: Lidocaine PATCH 5%* 1 PATCH TRANSDERM SCH (08:01)
--- NOTE | 2017-07-07 11:51 | PN ---
MHU: Group Therapy Note - Service Type Service Type: 57015 Group Psychotherapy - Cognitive Behavioral Group Therapy ( CBT):Patient attended CBT programming this morning and presented with flat affect that did not vary with discussion. Although responsive to direct prompts to respond to questions, patient did not engage in spontaneous conversation.
--- NOTE | 2017-07-07 14:53 | PN ---
Subjective - Subjective Service Type: 62822 Hosp care 15 min low complexity Subjective: Progress Note: Carlotta is lying in bed, resting. She smiles and is agreeable to conversation. She states she's doing well today. She appears to be cold and is agreeable to being covered with a blanket, but she also wants to go to the 3:00 group and doesn't want to sleep through it. It is unclear whether she is shivering or her tremor is particularly active. She denies AH/VH and is oriented to being on the unit and in her particular room. Plan - Plan Treatment Plan: Name: CARLOTTA ESCOTO Birthdate: 1940 [id number] Medications: Current Medications Acetaminophen (Tylenol Tab*) 650 mg PO Q4H PRN PRN Reason: PAIN Al Hydrox/Mg Hydrox/Simethicone (Maalox Plus*) 30 ml PO Q4H PRN PRN Reason: INDIGESTION Aripiprazole (Abilify Tab*) 5 mg PO DAILY [facility] Last Admin: 07/07/17 08:00 Dose: 5 mg Aripiprazole (Abilify Maintena (Nf)) 300 mg IM Q28D [facility] Last Admin: 07/06/17 13:49 Dose: 300 mg Lidocaine (Lidoderm 5% Patch*) 1 patch TRANSDERM DAILY [facility] Last Admin: 07/07/17 08:01 Dose: 1 patch Lorazepam (Ativan Tab(*)) 0.5 mg PO BEDTIME PRN PRN Reason: ANXIETY Multivitamins (Theragran Tab*) 1 tab PO DAILY [facility] Last Admin: 07/07/17 08:01 Dose: 1 tab Pharmacy Profile Note (Lidocaine Patch Remove*) 1 note N/A 2100 [facility] Last Admin: 07/06/17 20:21 Dose: 1 note
[2017-07-08] MEDS: Lidocaine Patch REMOVE* 1 NOTE MISC SCH ×2 (05:20→20:07)
[2017-07-08] MEDS: Lidocaine PATCH 5%* 1 PATCH TRANSDERM SCH (07:58)
[2017-07-08] MEDS: ARIPiprazole TAB* 5 MG PO SCH (08:33)
[2017-07-08] MEDS: Vitamin THERAPEUTIC TAB PO SCH (08:33)
[2017-07-09] MEDS: ARIPiprazole TAB* 5 MG PO SCH (08:40)
[2017-07-09] MEDS: Vitamin THERAPEUTIC TAB PO SCH (08:40)
[2017-07-09] MEDS: Lidocaine PATCH 5%* 1 PATCH TRANSDERM SCH (08:41)
--- NOTE | 2017-07-09 18:04 | PN ---
Subjective - Subjective Date of Service: 07/09/17 Service Type: 22043 Hosp care 15 min low complexity Subjective: Carlotta was happily playing [employer] and came out to see me without problem. Denies any problem and feels good and safe here. Wants to know when and where is going from here. Denies mood, thoughts or perceptual disturbances. Also denies SI/HI. Objective - Appearance Appearance: Thin Framed Dysmorphic Features: Yes Hygiene: Normal Grooming: Fairly Well Kept - Behavior Psychomotor Activities: Normal Exhibits Abnormal Movement: No - Attitude and Relatedness Attitude and Relatedness: Appropriate Eye Contact: Good - Speech Quality: Unpressured Latencies: Normal Quantity: Appropriate - Mood Patient's Decription of Mood: "Okay" - Affect Observed Affect: Non-labile - Thought Process Patient's Thought Process: Coherent, Goal Directed Thought Content: No Passive Wish, No Suicidal Planning, No Homicidal Ideation, No Paranoid Ideation - Sensorium Experiencing Hallucinations: No, Sensorium is Clear Type of Hallucinations: Visual: No, Auditory: No, Command: No - Level of Consciousness Level of Consciousness: Alert Orientation: Yes Intact, Yes Orientated to Time, Yes Orientated to Place, Yes Orientated to Person - Impulse Control Impulse Control: Intact - Insight and Judgement Insight and Judgement: Fair - Group Participation Particating in Group Activities: Yes - Medication Management Medication Management Adherence: Yes Assessment - Assessment Merits Inpatient Hospitalization: For Immediate Safety, Pending Safe DC Plan Plan - Plan Treatment Plan: Name: CARLOTTA ESCOTO Birthdate: 1940 [id number] Continued Medication Management: Continue Outpt Medication Medications: Current Medications Acetaminophen (Tylenol Tab*) 650 mg PO Q4H PRN PRN Reason: PAIN Al Hydrox/Mg Hydrox/Simethicone (Maalox Plus*) 30 ml PO Q4H PRN PRN Reason: INDIGESTION Aripiprazole (Abilify Tab*) 5 mg PO DAILY [facility] Last Admin: 07/09/17 08:40 Dose: 5 mg Aripiprazole (Abilify Maintena (Nf)) 300 mg IM Q28D [facility] Last Admin: 07/06/17 13:49 Dose: 300 mg Lidocaine (Lidoderm 5% Patch*) 1 patch TRANSDERM DAILY [facility] Last Admin: 07/09/17 08:41 Dose: 1 patch Lorazepam (Ativan Tab(*)) 0.5 mg PO BEDTIME PRN PRN Reason: ANXIETY Multivitamins (Theragran Tab*) 1 tab PO DAILY [facility] Last Admin: 07/09/17 08:40 Dose: 1 tab Pharmacy Profile Note (Lidocaine Patch Remove*) 1 note N/A 2100 [facility] Last Admin: 07/08/17 20:07 Dose: Not Given - Discharge Plan Discharge Plan: Consider Longer Term Tx Outpatient Program: [facility]
[2017-07-10] MEDS: Lidocaine Patch REMOVE* 1 NOTE MISC SCH ×2 (05:29→23:00)
[2017-07-10] MEDS: ARIPiprazole TAB* 5 MG PO SCH (08:18)
[2017-07-10] MEDS: Vitamin THERAPEUTIC TAB PO SCH (08:18)
[2017-07-10] MEDS: Lidocaine PATCH 5%* 1 PATCH TRANSDERM SCH (09:58)
--- NOTE | 2017-07-10 14:12 | PN ---
Subjective - Subjective Date of Service: 07/10/17 Service Type: 45318 Hosp care 15 min low complexity Subjective: Madhu is in a good mood. She is somewhat anxious about what will be happening for her in the future as far as places to live go. She also has some anxieties about finances. Objective - Appearance Appearance: Thin Framed Dysmorphic Features: No Hygiene: Normal Grooming: Fairly Well Kept - Behavior Psychomotor Activities: Normal Exhibits Abnormal Movement: Yes - Attitude and Relatedness Attitude and Relatedness: Well Related - Speech Quality: Unpressured Latencies: Normal Quantity: Terse Plan - Plan Treatment Plan: Name: CARLOTTA ESCOTO Birthdate: 1940 [id number] Medications: Current Medications Acetaminophen (Tylenol Tab*) 650 mg PO Q4H PRN PRN Reason: PAIN Al Hydrox/Mg Hydrox/Simethicone (Maalox Plus*) 30 ml PO Q4H PRN PRN Reason: INDIGESTION Aripiprazole (Abilify Tab*) 5 mg PO DAILY [facility] Last Admin: 07/10/17 08:18 Dose: 5 mg Aripiprazole (Abilify Maintena (Nf)) 300 mg IM Q28D [facility] Last Admin: 07/06/17 13:49 Dose: 300 mg Lidocaine (Lidoderm 5% Patch*) 1 patch TRANSDERM DAILY [facility] Last Admin: 07/10/17 09:58 Dose: 1 patch Lorazepam (Ativan Tab(*)) 0.5 mg PO BEDTIME PRN PRN Reason: ANXIETY Multivitamins (Theragran Tab*) 1 tab PO DAILY [facility] Last Admin: 07/10/17 08:18 Dose: 1 tab Pharmacy Profile Note (Lidocaine Patch Remove*) 1 note N/A 2100 [facility] Last Admin: 07/10/17 05:29 Dose: Not Given - Discharge Plan Discharge Plan: Outpatient Follow Up Outpatient [facility]
[2017-07-11] MEDS: ARIPiprazole TAB* 5 MG PO SCH (08:37)
[2017-07-11] MEDS: Lidocaine PATCH 5%* 1 PATCH TRANSDERM SCH (08:37)
[2017-07-11] MEDS: Vitamin THERAPEUTIC TAB PO SCH (08:37)
--- NOTE | 2017-07-11 14:01 | PN ---
Subjective - Subjective Service Type: 52922 Hosp care 15 min low complexity Subjective: Madhu has spent most of the day in bed. During our conversation today she wondered if she had to follow all the rules, asking "what is my status here since I'm here because I can't find a place to live? We discussed that "following the rules," in her words, would be her best course of action. She is bright and is in a cherrful, though tired, mood. She reports having no anxieties or distress. Objective - Appearance Appearance: Thin Framed Dysmorphic Features: No Hygiene: Normal Grooming: Fairly Well Kept - Behavior Psychomotor Activities: Normal Exhibits Abnormal Movement: Yes - Attitude and Relatedness Attitude and Relatedness: Cooperative Eye Contact: Good - Speech Quality: Unpressured Latencies: Normal Quantity: Terse - Mood Patient's Decription of Mood: "Fine" - Affect Observed Affect: Good Affect Consistent with: Euthymia - Thought Process Patient's Thought Process: Coherent Thought Content: No Passive Wish, No Suicidal Planning, No Homicidal Ideation, No Paranoid Ideation - Sensorium Experiencing Hallucinations: No, Sensorium is Clear Type of Hallucinations: Visual: No, Auditory: No, Command: No - Level of Consciousness Level of Consciousness: Alert Orientation: Yes Intact, Yes Orientated to Time, Yes Orientated to Place, Yes Orientated to Person - Impulse Control Impulse Control: Intact - Insight and Judgement Insight and Judgement: Good - Group Participation Particating in Group Activities: Yes - Medication Management Medication Management Adherence: Yes Plan - Plan Treatment Plan: Name: CARLOTTA ESCOTO Birthdate: 1940 [id number] Medications: Current Medications Acetaminophen (Tylenol Tab*) 650 mg PO Q4H PRN PRN Reason: PAIN Al Hydrox/Mg Hydrox/Simethicone (Maalox Plus*) 30 ml PO Q4H PRN PRN Reason: INDIGESTION Aripiprazole (Abilify Tab*) 5 mg PO DAILY [facility] Last Admin: 07/11/17 08:37 Dose: 5 mg Aripiprazole (Abilify Maintena (Nf)) 300 mg IM Q28D [facility] Last Admin: 07/06/17 13:49 Dose: 300 mg Lidocaine (Lidoderm 5% Patch*) 1 patch TRANSDERM DAILY [facility] Last Admin: 07/11/17 08:37 Dose: 1 patch Lorazepam (Ativan Tab(*)) 0.5 mg PO BEDTIME PRN PRN Reason: ANXIETY Multivitamins (Theragran Tab*) 1 tab PO DAILY [facility] Last Admin: 07/11/17 08:37 Dose: 1 tab Pharmacy Profile Note (Lidocaine Patch Remove*) 1 note N/A 2100 [facility] Last Admin: 07/10/17 23:00 Dose: 1 note - Discharge Plan Discharge Plan: Outpatient Follow Up Outpatient Program: [facility]
[2017-07-11] MEDS: Acetaminophen TAB* 325 MG PO PRN (20:22)
[2017-07-11] MEDS: Lidocaine Patch REMOVE* 1 NOTE MISC SCH (20:55)
[2017-07-12] MEDS: Vitamin THERAPEUTIC TAB PO SCH (08:17)
[2017-07-12] MEDS: ARIPiprazole TAB* 5 MG PO SCH (08:17)
[2017-07-12] MEDS: Lidocaine PATCH 5%* 1 PATCH TRANSDERM SCH (08:17)
[2017-07-12] MEDS: Lidocaine Patch REMOVE* 1 NOTE MISC SCH (20:18)
[2017-07-13] MEDS: Vitamin THERAPEUTIC TAB PO SCH (08:23)
[2017-07-13] MEDS: ARIPiprazole TAB* 5 MG PO SCH (08:23)
[2017-07-13] MEDS: Lidocaine PATCH 5%* 1 PATCH TRANSDERM SCH (08:24)
[2017-07-13] MEDS ORDERED: PPD test dose* 5 TU/0.1 ML TEST (*USE PPD ORDER SET*) INTRADERM SCH (09:00)
[2017-07-13] MEDS ORDERED: Tuberculin PPD* 5 TU/DOSE/0.1 ML INTRADERM ONE (09:00)
--- NOTE | 2017-07-13 11:20 | PN ---
Subjective - Subjective Date of Service: 07/13/17 Service Type: 14010 Hosp care 15 min low complexity Subjective: Brian was combing her hair when I found her in her room sitting on the bed. She's in a good mood and says she's doing well except that she's anxious due to not knowing what her housing situation will be. She states she has suyapa that it will all turn laster eventually in her favor and she is happy enough about that. She is eating and sleeping well, with the exception of being anxious at night and not sleeping through the night completely. Objective - Appearance Appearance: Thin Framed Dysmorphic Features: No Hygiene: Normal Grooming: Fairly Well Kept - Behavior Psychomotor Activities: Normal - Attitude and Relatedness Attitude and Relatedness: Cooperative - Speech Quality: Unpressured Latencies: Normal Quantity: Terse - Mood Patient's Decription of Mood: "Good" - Affect Observed Affect: Good Affect Consistent with: Euthymia - Thought Process Patient's Thought Process: Coherent Thought Content: No Passive Wish, No Suicidal Planning, No Homicidal Ideation, No Paranoid Ideation - Sensorium Experiencing Hallucinations: No, Sensorium is Clear - Level of Consciousness Level of Consciousness: Alert Orientation: No Intact, No Orientated to Time, No Orientated to Place, No Orientated to Person - Impulse Control Impulse Control: Intact - Insight and Judgement Insight and Judgement: Good - Group Participation Particating in Group Activities: No - Medication Management Medication Management Adherence: Yes Assessment - Assessment Merits Inpatient Hospitalization: For Stabilization, For Ongoing Evaluation, For Discharge Planning Plan - Plan Treatment Plan: Name: BRIAN ESCOTO Birthdate: 1940 [id number] Medications: Current Medications Acetaminophen (Tylenol Tab*) 650 mg PO Q4H PRN PRN Reason: PAIN Last Admin: 07/11/17 20:22 Dose: 650 mg Al Hydrox/Mg Hydrox/Simethicone (Maalox Plus*) 30 ml PO Q4H PRN PRN Reason: INDIGESTION Aripiprazole (Abilify Tab*) 5 mg PO DAILY [facility] Last Admin: 07/13/17 08:23 Dose: 5 mg Aripiprazole (Abilify Maintena (Nf)) 300 mg IM Q28D [facility] Last Admin: 07/06/17 13:49 Dose: 300 mg Lidocaine (Lidoderm 5% Patch*) 1 patch TRANSDERM DAILY [facility] Last Admin: 07/13/17 08:24 Dose: 1 patch Lorazepam (Ativan Tab(*)) 0.5 mg PO BEDTIME PRN PRN Reason: ANXIETY Multivitamins (Theragran Tab*) 1 tab PO DAILY [facility] Last Admin: 07/13/17 08:23 Dose: 1 tab Pharmacy Profile Note (Lidocaine Patch Remove*) 1 note N/A 2100 [facility] Last Admin: 07/12/17 20:18 Dose: 1 note Pharmacy Profile Note (Ppd Reading Note*) 1 note .SEE ORDER .ONCE [facility] Stop: 07/15/17 23:59 - Discharge Plan Outpatient Program: [facility]
[2017-07-13] MEDS: Lidocaine Patch REMOVE* 1 NOTE MISC SCH ×2 (11:41→20:36)
[2017-07-14] MEDS: Lidocaine PATCH 5%* 1 PATCH TRANSDERM SCH (07:57)
[2017-07-14] MEDS: Vitamin THERAPEUTIC TAB PO SCH (07:57)
[2017-07-14] MEDS: ARIPiprazole TAB* 5 MG PO SCH (07:57)
--- NOTE | 2017-07-14 16:57 | PN ---
Subjective - Subjective Service Type: 84097 Hosp care 15 min low complexity Subjective: Carlotta seems happy. She describes having pain on the right side of her neck and she is using hot packs rather than the lidocaine patch I ordered. Nevertheless, she is experiencing some relief from her neck pain. She has changed her mind about something from her application: she'd like to be her own payee. I support her in this as she has been paying her own rent "for 31 years. " She is looking forward to having a place to live and is asking appropriate questions about the community. Objective - Appearance Appearance: Thin Framed Hygiene: Normal Grooming: Fairly Well Kept - Behavior Psychomotor Activities: Normal - Attitude and Relatedness Attitude and Relatedness: Well Related Eye Contact: Good - Speech Quality: Unpressured Latencies: Normal Quantity: Terse - Mood Patient's Decription of Mood: "Good" - Affect Affect Consistent with: Euthymia - Thought Process Patient's Thought Process: Coherent Thought Content: No Passive Wish, No Suicidal Planning, No Homicidal Ideation, No Paranoid Ideation - Sensorium Experiencing Hallucinations: No, Sensorium is Clear Type of Hallucinations: Visual: No, Auditory: No, Command: No - Level of Consciousness Level of Consciousness: Alert Orientation: Yes Intact, Yes Orientated to Time, Yes Orientated to Place, Yes Orientated to Person - Impulse Control Impulse Control: Intact - Insight and Judgement Insight and Judgement: Good - Group Participation Particating in Group Activities: Yes - Medication Management Medication Management Adherence: Yes Assessment - Assessment Merits Inpatient Hospitalization: For Stabilization, For Ongoing Evaluation Plan - Plan Treatment Plan: Name: CARLOTTA ESCOTO Birthdate: 1940 [id number] Medications: Current Medications Acetaminophen (Tylenol Tab*) 650 mg PO Q4H PRN PRN Reason: PAIN Last Admin: 07/11/17 20:22 Dose: 650 mg Al Hydrox/Mg Hydrox/Simethicone (Maalox Plus*) 30 ml PO Q4H PRN PRN Reason: INDIGESTION Aripiprazole (Abilify Tab*) 5 mg PO DAILY [facility] Last Admin: 07/14/17 07:57 Dose: 5 mg Aripiprazole (Abilify Maintena (Nf)) 300 mg IM Q28D [facility] Last Admin: 07/06/17 13:49 Dose: 300 mg Lidocaine (Lidoderm 5% Patch*) 1 patch TRANSDERM DAILY [facility] Last Admin: 07/14/17 07:57 Dose: 1 patch Lorazepam (Ativan Tab(*)) 0.5 mg PO BEDTIME PRN PRN Reason: ANXIETY Multivitamins (Theragran Tab*) 1 tab PO DAILY [facility] Last Admin: 07/14/17 07:57 Dose: 1 tab Pharmacy Profile Note (Lidocaine Patch Remove*) 1 note N/A 2100 [facility] Last Admin: 07/13/17 20:36 Dose: Not Given Pharmacy Profile Note (Ppd Reading Note*) 1 note .SEE ORDER .ONCE JANIE Stop: 07/15/17 23:59 - Discharge Plan Discharge Plan: Outpatient Follow Up Outpatient Program: [facility]
[2017-07-15] MEDS ORDERED: PPD Reading 48-72 HRS NOTE SCH (06:00)
[2017-07-15] MEDS: Lidocaine Patch REMOVE* 1 NOTE MISC SCH ×2 (08:28→22:39)
[2017-07-15] MEDS: ARIPiprazole TAB* 5 MG PO SCH (08:31)
[2017-07-15] MEDS: Lidocaine PATCH 5%* 1 PATCH TRANSDERM SCH (08:31)
[2017-07-15] MEDS: Vitamin THERAPEUTIC TAB PO SCH (08:31)
--- NOTE | 2017-07-15 20:04 | ED ---
Livier Amos Julia, scribed for Ronni Valdes MD on 07/05/17 at 1654 . Psychiatric Complaint - HPI Summary HPI Summary: This patient is a 77 year old F [facility] because she has not taken her Abilify, taken for psychosis, in 2 days. She states she hasnt taken them because she just got lazy. She ate soup at 13: 00 today but cant remember her last meal before that. Patient reports being worn out and difficulty sleeping. Patient denies hearing voices, or paranoia. She has hx of schizophrenia and syncopal episodes. Her psychologist is Junior Soler. 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 - History Of Current Complaint Chief Complaint: EDMentalHealth Hx Obtained From: Patient Onset/Duration: Lasting Days Timing: Constant Character: Fearful Aggravating Factor(s): Medication Non-compliance Associated Signs And Symptoms: Positive: Negative Related History: Positive For: Prior Psychiatric Issues - Allergies/Home Medications Allergies/Adverse Reactions: Allergies Allergy/AdvReac Type Severity Reaction Status Date / Time risperidone Allergy Severe See Comment Verified 07/06/17 12:09 amitriptyline Allergy Intermediate Tachycardia Verified 07/06/17 12:09 tizanidine Allergy Intermediate Swelling Verified 07/06/17 12:09 aspirin Allergy Mild GI Upset Verified 07/06/17 12:09 baclofen Allergy Mild GI Upset Verified 07/06/17 12:09 benztropine Allergy Mild GI Upset Verified 07/06/17 12:09 ibuprofen Allergy Mild GI Upset Verified 07/06/17 12:09 trihexyphenidyl Allergy Unknown GI Upset Verified 07/06/17 12:09 Home Medications: Home Medications Cyanocobalamin TAB* [Vitamin B12 TAB*] 50 mcg PO DAILY 07/05/17 [History Confirmed 07/05/17] PMH/Surg Hx/FS Hx/Imm Hx Endocrine/Hematology History: Reports: Hx Anemia Denies: Hx Anticoagulant Therapy, Hx Diabetes, Hx Unexplained Bleeding Cardiovascular History: Reports: Hx Hypercholesterolemia - DYSLIPIDEMIA, Other Cardiovascular Problems/Disorders - SEPSIS WITH STREP B Denies: Hx Aneurysm, Hx Angina, Hx Angioplasty, Hx Auto Implanted Cardiovert Defib, Hx Cardiac Arrest, Hx Cardiomegaly, Hx Congenital Heart Disease, Hx Congestive Heart Failure, Hx Coronary Artery Disease, Hx Deep Vein Thrombosis, Hx Embolism, Hx Hypotension, Hx Hypertension, Hx Pacemaker/ICD, Hx Peripheral Vascular Disease, Hx Rheumatic Fever, Hx Syncope, Hx Valvular Heart Disease History: Reports: Other Problems/Disorders - UTI'S Musculoskeletal History: Reports: Hx Osteoporosis, Other Musculoskeletal History - degenerative disc disease, torticollis, cervical dystonia Sensory History: Reports: Hx Contacts or Glasses Denies: Hx Cataracts, Hx Eye Injury, Hx Eye Prosthesis, Hx Glaucoma, Hx Legally Blind, Hx Macular Degeneration, Hx Vision Problem, Hx Deafness, Hx Hearing Aid, Hx Hearing Problem, Other Sensory Impairments Opthamlomology History: Reports: Hx Contacts or Glasses Denies: Hx Cataracts, Hx Eye Injury, Hx Eye Prosthesis, Hx Glaucoma, Hx Legally Blind, Hx Macular Degeneration, Hx Vision Problem, Other Sensory Impairments Neurological History: 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 Psychiatric History: Reports: Hx Anxiety, Hx Depression, Hx Panic Disorder, Hx Inpatient Treatment, Hx Community Mental Health Tx, Hx Schizophrenia, Other Psychiatric Issues/Disorders - PARANOIA Denies: Hx Eating Disorder, Hx of Violent Episodes Against Others, Hx Substance Abuse - Cancer History Hx Chemotherapy: No Hx Radiation Therapy: No - Surgical History Surgery Procedure, Year, and Place: TUBAL LIGATION 1969 Infectious Disease History: Reports: Hx of Known/Suspected MRSA - Family History Known Family History: Positive: Hypertension - Social History Alcohol Use: Rare Hx Substance Use: No Substance Use Type: Reports: None Hx Tobacco Use: No Smoking Status (MU): Former Smoker Have You Smoked in the Last Year: No Review of Systems Positive: Fatigue Neurological: Negative - hallucinations or paranoia All Other Systems Reviewed And Are Negative: Yes Physical Exam - Summary Physical Exam Summary: Appearance: cachectic, Skin: Warm, Dry, No rash Eyes: Normal, PERRL, EOMI, sclera anicteric ENT: Normal Neck: Supple, nontender Respiratory: Clear to auscultation Cardiovascular: S1, S2, no murmur, no rub, no gallop Abdomen: Soft, nontender, no organomegaly Bowel sounds: Present Musculoskeletal: Normal, Strength/ROM Intact, no edema, pulses symmetrical Neurological: Normal, A&Ox3, cranial nerves II-XII WNL, follows commands, gait not tested, sensation intact to pin and light touch, mild tremor of R hand, Parkinsons features Psychiatric: mildly frightened, behavior appropriate, dressed appropriately, judgment intact Triage Information Reviewed: Yes Vital Signs On Initial Exam: Initial Vitals BP 126/77 07/05/17 16:20 Vital Signs Reviewed: Yes Diagnostics - Vital Signs Vital Signs Temp Pulse Resp BP Pulse Ox 07/05/17 18:59 99 100 07/05/17 18:31 115/75 07/05/17 18:30 95 100 07/05/17 18:00 102 118/69 100 07/05/17 17:53 124/78 07/05/17 17:00 98 99 07/05/17 16:30 111 139/89 97 07/05/17 16:23 38.1 C 104 20 126/77 97 07/05/17 16:20 126/77 - Laboratory Lab Results: Lab Results 07/05/17 07/05/17 07/05/17 Range/Units 16:40 16:40 18:09 WBC 7.2 (3.5-10.8) 10^3/ul RBC 4.84 (4.0-5.4) 10^6/ul Hgb 11.3 L (12.0-16.0) g/dl Hct 36 (35-47) % MCV 74 L (80-97) fL MCH 23 L (27-31) pg MCHC 32 (31-36) g/dl RDW 16 H (10.5-15) % Plt Count 254 (150-450) 10^3/ul MPV 9 (7.4-10.4) um3 Neut % (Auto) 78.2 (38-83) % Lymph % (Auto) 14.4 L (25-47) % [place] % (Auto) 6.5 (1-9) % Eos % (Auto) 0.1 (0-6) % Baso % (Auto) 0.8 (0-2) % Absolute Neuts (auto) 5.6 (1.5-7.7) 10^3/ul Absolute Lymphs (auto) 1.0 (1.0-4.8) 10^3/ul Absolute Monos (auto) 0.5 (0-0.8) 10^3/ul Absolute Eos (auto) 0 (0-0.6) 10^3/ul Absolute Basos (auto) 0.1 (0-0.2) 10^3/ul Absolute Nucleated RBC 0 10^3/ul Nucleated RBC % 0.1 Sodium 141 (133-145) mmol/L Potassium 4.2 (3.5-5.0) mmol/L Chloride 106 (101-111) mmol/L Carbon Dioxide 29 (22-32) mmol/L Anion Gap 6 (2-11) mmol/L BUN 13 (6-24) mg/dL Creatinine 0.98 H (0.51-0.95) mg/dL Est GFR ( Amer) 71.0 (>60) Est GFR (Non-Af Amer) 55.2 (>60) BUN/Creatinine Ratio 13.3 (8-20) Glucose 112 H (70-100) mg/dL Calcium 9.6 (8.6-10.3) mg/dL Iron 59 (50-212) ug/dL TIBC 301 (250-450) mcg/dL % Saturation 20 (15-55) % Unsat Iron Binding 242 ug/dL Ferritin 76.3 (11-307) ng/mL Total Bilirubin 0.50 (0.2-1.0) mg/dL AST 24 (13-39) U/L ALT 16 (7-52) U/L Alkaline Phosphatase 72 (34-104) U/L Total Protein 7.5 (6.4-8.9) g/dL Albumin 4.2 (3.2-5.2) g/dL Globulin 3.3 (2-4) g/dL Albumin/Globulin Ratio 1.3 (1-3) TSH 1.29 (0.34-5.60) mcIU/mL Urine Opiates Screen None detected (None Detect) Ur Barbiturates Screen None detected (None Detect) Ur Phencyclidine Scrn None detected (None Detect) Ur Amphetamines Screen None detected (None Detect) U Benzodiazepines Scrn None detected (None Detect) Urine Cocaine Screen None detected (None Detect) U Cannabinoids Screen None detected (None Detect) Serum Alcohol < 10 (<10) mg/dL Result Diagrams: 07/05/17 16:40 07/05/17 16:40 Lab Statement: Any lab studies that have been ordered have been reviewed, and results considered in the medical decision making process. Course/Dx - Course Course Of Treatment: Pt presents for a mental health evaluation at the request of her pyschologist, due to medication non-adherance due to " getting lazy". She reports she last ate at 1300 but cannot remember her last meal before that. She has dx of schizophrenia; she denies paranoia or auditory hallucinations. Pt is given a Cognetin injection. Bloodwork reveals microcytic anemia, but is otherwise unremarkable. Mental health evaluation requested at 18:40. - Differential Dx/Clinical Impression Provider Diagnosis: Microcytic anemia Discharge - Discharge Plan Condition: Stable Disposition: ADMITTED TO [facility] documentation as recorded by the Livier kaba Julia accurately reflects the service I personally performed and the decisions made by me, Ronni Valdes MD.
[2017-07-16] MEDS: Vitamin THERAPEUTIC TAB PO SCH (08:47)
[2017-07-16] MEDS: ARIPiprazole TAB* 5 MG PO SCH (08:47)
[2017-07-16] MEDS: Lidocaine PATCH 5%* 1 PATCH TRANSDERM SCH (08:47)
[2017-07-16] MEDS: Acetaminophen TAB* 325 MG PO PRN (16:48)
[2017-07-16] MEDS: Lidocaine Patch REMOVE* 1 NOTE MISC SCH (21:14)
[2017-07-17] MEDS: Lidocaine PATCH 5%* 1 PATCH TRANSDERM SCH (09:38)
[2017-07-17] MEDS: ARIPiprazole TAB* 5 MG PO SCH (09:39)
[2017-07-17] MEDS: Vitamin THERAPEUTIC TAB PO SCH (09:39)
--- NOTE | 2017-07-17 14:33 | PN ---
Plan - Plan Treatment Plan: Name: CARLOTTA ESCOTO Birthdate: 1940 [id number] Medications: Current Medications Acetaminophen (Tylenol Tab*) 650 mg PO Q4H PRN PRN Reason: PAIN Last Admin: 07/16/17 16:48 Dose: 650 mg Al Hydrox/Mg Hydrox/Simethicone (Maalox Plus*) 30 ml PO Q4H PRN PRN Reason: INDIGESTION Aripiprazole (Abilify Tab*) 5 mg PO DAILY [facility] Last Admin: 07/17/17 09:39 Dose: 5 mg Aripiprazole (Abilify Maintena (Nf)) 300 mg IM Q28D [facility]PL[facility] Last Admin: 07/06/17 13:49 Dose: 300 mg Lidocaine (Lidoderm 5% Patch*) 1 patch TRANSDERM DAILY [facility] Last Admin: 07/17/17 09:38 Dose: 1 patch Lorazepam (Ativan Tab(*)) 0.5 mg PO BEDTIME PRN PRN Reason: ANXIETY Multivitamins (Theragran Tab*) 1 tab PO DAILY [facility] Last Admin: 07/17/17 09:39 Dose: 1 tab Pharmacy Profile Note (Lidocaine Patch Remove*) 1 note N/A 2100 [facility]PL[facility] Last Admin: 07/16/17 21:14 Dose: 1 note
[2017-07-17] MEDS: Lidocaine Patch REMOVE* 1 NOTE MISC SCH (23:26)
[2017-07-18] MEDS: Lidocaine PATCH 5%* 1 PATCH TRANSDERM SCH (08:27)
[2017-07-18] MEDS: Vitamin THERAPEUTIC TAB PO SCH (08:27)
[2017-07-18] MEDS: ARIPiprazole TAB* 5 MG PO SCH (08:27)
[2017-07-18 08:45] VITALS: BP 146/80
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
== END 2017-07-18 13:25 | DRG 885 ==
LOC: ED 16:11 → BSU 19:00
PROVIDERS: ADMIT Psychiatry & Neurology Psychiatry; ATTEND Psychiatry & Neurology Psychiatry
PROC: GZHZZZZ Group Psychotherapy (ICD-10-PCS; principal; 2017-07-06)
DX: F20.9 Schizophrenia, unspecified (principal); G24.8 Other dystonia; E78.00 Pure hypercholesterolemia, unspecified; M81.0 Age-related osteoporosis without current pathological fracture; G24.3 Spasmodic torticollis; F32.9 Major depressive disorder, single episode, unspecified; F41.0 Panic disorder [episodic paroxysmal anxiety]; Z98.51 Tubal ligation status; Z88.6 Allergy status to analgesic agent; Z82.49 Family history of ischemic heart disease and other diseases of the circulatory system; Z87.891 Personal history of nicotine dependence; Z88.8 Allergy status to other drugs, medicaments and biological substances; Z86.14 Personal history of Methicillin resistant Staphylococcus aureus infection
CPT/HCPCS: 36415; 80053; 80307; 80320; 82728; 83540; 83550; 84443; 85025; 90853; 99222; 99231; 99238; 99284; A9270-GY; G0480; J0515

== ENCOUNTER 2019-04-11 16:04 | Emergency (ER) | payer MEDICARE, MEDICAID ==
--- OUTSIDE RECORDS SUMMARY | 2019-04-11 16:20 | XMS REPORT | Continuity of Care Document ---
:1940 External Reference #:[id number] Author Name Benson Chapin M.D. 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 Social History Type Date Description Comments Sex Unknown ETOH Use Rarely consumes alcohol Tobacco Use Start: Unknown Patient has never smoked Recreational Drug Use Denies Drug Use Smoking Status Reviewed: 04/09/19 Patient has never smoked Allergies, Adverse Reactions, Alerts Active Allergies Reaction Severity Comments Date Risperdal 07/24/2017 Amitriptyline 07/24/2017 Trihexyphenidyl 07/24/2017 Aspirin 07/24/2017 Baclofen 07/24/2017 Benztropine 07/24/2017 Diazepam 07/24/2017 Tizanidine 07/24/2017 Medications Active Medications SIG Qnty Indications Ordering Provider Date Lidocaine apply patch up to Unknown 5% Patches 12 hours once a day. Botox every 4 months Unknown Solution Rec Vitamin B-12 1 by mouth every Unknown 500mcg Tablets day Lorazepam 1 po in am, 1 po Unknown 0.5mg Tablets at hs Alendronate Sodium take one tablet Unknown 70mg by mouth once a Tablets week Vitamin D3 Maximum 1 by mouth every Unknown Strength day 5000Unit Capsules Abilify 1 by mouth every Unknown 10mg Tablets day at bedtime Calcium Oyster Shell 1 tab twice daily Unknown 500mg Tablets Acetaminophen 2 every 4 hours Unknown 325mg Tablets as needed for pain Nyquil 30 cc by mouth as Unknown needed take 30 Medications Administered in Office Medication SIG Qnty Indications Ordering Provider Date Injection Onabotulinumtoxin Benson Preciado M.D. 01/01/2019 1 Unit Injection Injection Onabotulinumtoxin Benson Preciado M.D. 09/25/2018 1 Unit Injection Injection Onabotulinumrafixin Benson Preciado M.D. 06/19/2018 1 Unit Injection Injection Onabotulinumtoxin Benson Preciado M.D. 02/06/2018 1 Unit Injection Injection Onabotulinumtoxin Benson Preciado M.D. 10/25/2017 1 Unit Injection Immunizations Description No Information Available Vital Signs Date Vital Result Comment 04/09/2019 10:38am Height 60 inches 5'0" Weight 101.00 lb Heart Rate 64 /min BP Systolic 120 mmHg BP Diastolic 68 mmHg BMI (Body Mass Index) 19.7 kg/m2 01/01/2019 10:06am Height 60 inches 5'0" Weight 98.00 lb Heart Rate 66 /min BP Systolic 122 mmHg BP Diastolic 72 mmHg BMI (Body Mass Index) 19.1 kg/m2 Results Description No Information Available Procedures Date Code Description Status 01/01/2019 84193 Chemodenervation Of Neck Muscles Excluding Larynx, Completed Unilateral Medical Devices Description No Information Available Encounters Description No Information Available Assessments Date Code Description Provider 04/09/2019 G24.3 Spasmodic torticollis Benson Chapin M.D. 01/01/2019 G24.3 Spasmodic torticollis Benson Chapin M.D. Plan of Treatment Future Appointment(s):10/15/2019 10:00 am - Benson Chapin M.D. at [facility]07/16/2019 10:00 am - Benson Chapin M.D. at [facility]04/09/2019 - Benson Chapin M.D.G24.3 Spasmodic torticollisFollow up:3 months for botox Functional Status Description No Information Available Mental Status Description No Information Available Referrals Description No Information Available
[2019-04-11 16:59] LABS: Urine Appearance Clear; Urine Bacteria Absent (Absent); Urine Bilirubin Negative (Negative); Urine Blood Negative (Negative); Urine Color Straw; Urine Glucose Negative (Negative); Urine Ketones Negative (Negative); Urine Nitrite Negative (Negative); Urine Protein Negative (Negative); Urine Red Blood Cell Trace(0-2/hpf) (Absent); Urine Specific Gravity 1.004 (1.010-1.030); Urine Squamous Epithelial Cell Present (Absent); Urine Urobilinogen Negative (Negative); Urine White Blood Cell 1+(6-10/hpf) (Absent)
[2019-04-11 17:00] LABS: Hematocrit 34 % (35-47); Hemoglobin 10.7 g/dL (12.0-16.0); Mean Corpuscular HGB Conc 32 g/dL (31-36); Mean Corpuscular Hemoglobin 24 pg (27-31); Mean Corpuscular Volume 74 fL (80-97); Mean Platelet Volume 8.3 fL (7.4-10.4); Platelet Count 210 10^3/uL (150-450); Red Blood Count 4.53 10^6 /uL (3.70-4.87); Red Cell Distribution Width 16 % (10-15); White Blood Count 5.1 10^3/uL (3.5-10.8)
[2019-04-11 17:16] LABS: Albumin 4.1 g/dL (3.2-5.2); Albumin/Globulin Ratio 1.3 (1-3); BUN/Creatinine Ratio 14.8 (8-20); Calcium 9.9 mg/dL (8.6-10.3); EGFR African American 59.5 (>60); EGFR Non-African American 49.2 (>60); Globulin 3.1 g/dL (2-4); Magnesium 1.8 mg/dL (1.9-2.7); Total Bilirubin 0.5 mg/dL (0.2-1.0); Total Protein 7.2 g/dL (6.4-8.9)
[2019-04-11 17:18] LABS: Troponin I 0.02 ng/mL (<0.04)
[2019-04-11 17:28] LABS: ABS Basophils 0.1 10^3/ul (0-0.2); ABS Lymphocytes 1.4 10^3/ul (1.0-4.8); ABS Monocytes 0.4 10^3/ul (0-0.8); ABS Neutrophils 3.1 10^3/ul (1.5-7.7); Eosinophil % 0.9 %; Lymphocyte % 28.3 %; Nucleated Red Blood Cells % 0.1
[2019-04-11 18:21] VITALS: BP 136/73
--- NOTE | 2019-04-13 06:25 | ED ---
Complex/Multi-Sys Presentation - HPI Summary HPI Summary: This patient is a 78-year-old female who presents to the ED with her son from [facility] with a chief complaint of weakness over the past week. She did endorse a fall last week and states she has been having some right hip pain over the past week. She denies this currently. She is more concerned with her weakness. She does have a history of UTIs. No history of CVA or TIA. She states she is otherwise healthy, no cardiac or pulmonary disease. She does have a history of psychosis in which she takes Abilify. Patient states other than her fall last week, she tends to ambulate well. She denies any abdominal pain, chest pain, shortness of breath, neck pain, headaches, visual changes, confusion, memory loss. She denies any unilateral weakness. Denies any tingling or numbness throughout. She states her weakness may have improved over the past few days, but she is unsure. She has not had a cough and has not been ill recently. All recent vaccinations are up-to-date. 1 - History Of Current Complaint Chief Complaint: EDWeakness Time Seen by Provider: 04/11/19 16:12 Hx Obtained From: Patient Onset/Duration: Gradual Onset Timing: Constant Severity Currently: Mild Severity Initially: Mild - Allergies/Home Medications Allergies/Adverse Reactions: Allergies Allergy/AdvReac Type Severity Reaction Status Date / Time risperidone Allergy Severe See Comment Verified 07/06/17 12:09 amitriptyline Allergy Intermediate Tachycardia Verified 07/06/17 12:09 tizanidine Allergy Intermediate Swelling Verified 07/06/17 12:09 aspirin Allergy Mild GI Upset Verified 07/06/17 12:09 baclofen Allergy Mild GI Upset Verified 07/06/17 12:09 benztropine Allergy Mild GI Upset Verified 07/06/17 12:09 ibuprofen Allergy Mild GI Upset Verified 07/06/17 12:09 trihexyphenidyl Allergy Unknown GI Upset Verified 07/06/17 12:09 Home Medications: Home Medications ARIPiprazole TAB* [Abilify TAB*] 5 mg PO BID 04/11/19 [History Confirmed ] ARIPiprazole TAB* [Abilify TAB*] 10 mg PO BEDTIME 04/11/19 [History Confirmed 04/11/19] Acetaminophen TAB* [Tylenol TAB*] 650 mg PO Q4H PRN 04/11/19 [History Confirmed 04/11/19] Alendronate (NF) [Fosamax (NF)] 70 mg PO WEEKLY 04/11/19 [History Confirmed ] Calcium Carbonate/Vitamin D3 [Oyster Shell 500Mg-Vit D3 5Mcg] 1 tab PO BID 04/11 [History Confirmed 04/11/19] Cholecalciferol (Vitamin D3) [Vitamin D3] 5,000 unit PO DAILY 04/11/19 [History Confirmed 04/11/19] Cyanocobalamin TAB* [Vitamin B12 TAB*] 500 mcg PO DAILY 04/11/19 [History Confirmed 04/11/19] Dextromethorphn/Acetaminoph/Cp [Vicks Nyquil Cold & Flu N] 30 ml PO BEDTIME PRN 04/11/19 [History Confirmed 04/11/19] Eucalyptus/Menthol [Nazario Cough Drops] 1 anabel PO Q2HR PRN 04/11/19 [History Confirmed 04/11/19] LORazepam TAB(*) [Ativan 0.5 MG TAB (*)] 0.5 mg PO BID PRN MDD 1 mg 04/11/19 [ History Confirmed 04/11/19] Lidocaine PATCH 5%* [Lidoderm 5% Patch*] 1 patch TRANSDERM DAILY 04/11/19 [ History Confirmed 04/11/19] PMH/Surg Hx/FS Hx/Imm Hx Previously Healthy: Yes Endocrine/Hematology History: Reports: Hx Anemia Denies: Hx Anticoagulant Therapy, Hx Diabetes, Hx Unexplained Bleeding Cardiovascular History: Reports: Hx Hypercholesterolemia - DYSLIPIDEMIA, Other Cardiovascular Problems/Disorders - SEPSIS WITH STREP B Denies: Hx Aneurysm, Hx Angina, Hx Angioplasty, Hx Auto Implanted Cardiovert Defib, Hx Cardiac Arrest, Hx Cardiomegaly, Hx Congenital Heart Disease, Hx Congestive Heart Failure, Hx Coronary Artery Disease, Hx Deep Vein Thrombosis, Hx Embolism, Hx Hypotension, Hx Hypertension, Hx Pacemaker/ICD, Hx Peripheral Vascular Disease, Hx Rheumatic Fever, Hx Syncope, Hx Valvular Heart Disease History: Reports: Other Problems/Disorders - UTI'S Musculoskeletal History: Reports: Hx Osteoporosis, Other Musculoskeletal History - degenerative disc disease, torticollis, cervical dystonia Sensory History: Reports: Hx Contacts or Glasses Denies: Hx Cataracts, Hx Eye Injury, Hx Eye Prosthesis, Hx Glaucoma, Hx Legally Blind, Hx Macular Degeneration, Hx Vision Problem, Hx Deafness, Hx Hearing Aid, Hx Hearing Problem, Other Sensory Impairments Opthamlomology History: Reports: Hx Contacts or Glasses Denies: Hx Cataracts, Hx Eye Injury, Hx Eye Prosthesis, Hx Glaucoma, Hx Legally Blind, Hx Macular Degeneration, Hx Vision Problem, Other Sensory Impairments Neurological History: 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 Psychiatric History: Reports: Hx Anxiety, Hx Depression, Hx Panic Disorder, Hx Inpatient Treatment, Hx Community Mental Health Tx, Hx Schizophrenia, Other Psychiatric Issues/Disorders - PARANOIA Denies: Hx Eating Disorder, Hx of Violent Episodes Against Others, Hx Substance Abuse - Cancer History Hx Chemotherapy: No Hx Radiation Therapy: No - Surgical History Surgery Procedure, Year, and Place: TUBAL LIGATION 1969 - Immunization History Hx Pertussis Vaccination: No Immunizations Up to Date: Yes Infectious Disease History: No Infectious Disease History: Reports: Hx of Known/Suspected MRSA Denies: Traveled Outside the [place] in Last 30 Days - Family History Known Family History: Positive: Hypertension - Social History Occupation: Unemployed Lives: [facility] Alcohol Use: Rare Alcohol Amount: patient states that she rarely drinks alcohol Hx Substance Use: No Substance Use Type: Reports: None Hx Tobacco Use: No Smoking Status (MU): Former Smoker Have You Smoked in the Last Year: No Review of Systems Negative: Fever, Chills, Fatigue, Skin Diaphoresis Negative: Blurred Vision Negative: Palpitations, Chest Pain Negative: Shortness Of Breath, Cough Genitourinary: Negative Positive: no symptoms reported, see HPI Negative: Arthralgia - previous R hip pain - none currently per patient, Myalgia Negative: Bruising Positive: Weakness. Negative: Headache, Paresthesia, Numbness, Syncope, Slurred Speech All Other Systems Reviewed And Are Negative: Yes Physical Exam Triage Information Reviewed: Yes Vital Signs On Initial Exam: Initial Vitals Temp Pulse Resp BP Pulse Ox 99.3 F 98 16 151/95 100 04/11/19 16:07 04/11/19 16:07 04/11/19 16:07 04/11/19 16:07 04/11/19 16:07 Vital Signs Reviewed: Yes Appearance: Positive: Well-Appearing, Well-Nourished Skin: Positive: Warm, Skin Color Reflects Adequate Perfusion Head/Face: Positive: Normal Head/Face Inspection Eyes: Positive: EOMI, Conjunctiva Clear Neck: Positive: Supple, Nontender, No Lymphadenopathy Respiratory/Lung Sounds: Positive: Clear to Auscultation, Breath Sounds Present Cardiovascular: Positive: RRR, Pulses are Symmetrical in both Upper and Lower Extremities. Negative: Leg Edema Left, Leg Edema Right Musculoskeletal: Positive: Normal, Strength/ROM Intact - good strength against resistance throughout bilateral upper and lower ext, Other - log roll - no pain bilaterally to the hips Neurological: Positive: Sensory/Motor Intact, Alert, Oriented to Person Place, Time Psychiatric: Positive: Normal, Affect/Mood Appropriate AVPU Assessment: Alert - Ольга Coma Scale Best Eye Response: 4 - Spontaneous Best Motor Response: 6 - Obeys Commands Best Verbal Response: 5 - Oriented Coma Scale Total: 15 Procedures - Sedation Patient Received Moderate/Deep Sedation with Procedure: No Diagnostics - Vital Signs Vital Signs Temp Pulse Resp BP Pulse Ox 04/11/19 18:21 98.4 F 76 16 136/73 99 04/11/19 18:01 18 04/11/19 17:59 15 136/73 04/11/19 17:00 88 18 99 04/11/19 16:12 92 19 100 04/11/19 16:07 99.3 F 98 16 151/95 100 - Laboratory Lab Results: Lab Results 04/11/19 04/11/19 04/11/19 Range/Units 16:40 16:49 16:49 WBC 5.1 (3.5-10.8) 10^3/uL RBC 4.53 (3.70-4.87) 10^6 /uL Hgb 10.7 L (12.0-16.0) g/dL Hct 34 L (35-47) % MCV 74 L (80-97) fL MCH 24 L (27-31) pg MCHC 32 (31-36) g/dL RDW 16 H (10-15) % Plt Count 210 (150-450) 10^3/uL MPV 8.3 (7.4-10.4) fL Neut % (Auto) 60.8 % Lymph % (Auto) 28.3 % Creek % (Auto) 7.8 % Eos % (Auto) 0.9 % Baso % (Auto) 2.2 % Absolute Neuts (auto) 3.1 (1.5-7.7) 10^3/ul Absolute Lymphs (auto) 1.4 (1.0-4.8) 10^3/ul Absolute Monos (auto) 0.4 (0-0.8) 10^3/ul Absolute Eos (auto) 0.0 (0-0.6) 10^3/ul Absolute Basos (auto) 0.1 (0-0.2) 10^3/ul Absolute Nucleated RBC 0.0 10^3/ul Nucleated RBC % 0.1 Hypochromasia 3+ Anisocytosis 2+ Sodium 138 (135-145) mmol/L Potassium 4.0 (3.5-5.0) mmol/L Chloride 103 (101-111) mmol/L Carbon Dioxide 30 (22-32) mmol/L Anion Gap 5 (2-11) mmol/L BUN 16 (6-24) mg/dL Creatinine 1.08 H (0.51-0.95) mg/dL Est GFR ( Amer) 59.5 (>60) Est GFR (Non-Af Amer) 49.2 (>60) BUN/Creatinine Ratio 14.8 (8-20) Glucose 120 H (70-100) mg/dL Calcium 9.9 (8.6-10.3) mg/dL Magnesium (1.9-2.7) mg/dL Total Bilirubin 0.50 (0.2-1.0) mg/dL AST 71 H (13-39) U/L ALT 20 (7-52) U/L Alkaline Phosphatase 45 (34-104) U/L Troponin I (<0.04) ng/mL Total Protein 7.2 (6.4-8.9) g/dL Albumin 4.1 (3.2-5.2) g/dL Globulin 3.1 (2-4) g/dL Albumin/Globulin Ratio 1.3 (1-3) Vitamin B12 (180-914) pg/mL Urine Color Straw Urine Appearance Clear Urine pH 6.0 (5-9) Ur Specific [place] 1.004 L (1.010-1.030) Urine Protein Negative (Negative) Urine Ketones Negative (Negative) Urine Blood Negative (Negative) Urine Nitrate Negative (Negative) Urine Bilirubin Negative (Negative) Urine Urobilinogen Negative (Negative) Ur Leukocyte Esterase 2+ A (Negative) Urine WBC (Auto) 1+(6-10/hpf) A (Absent) Urine RBC (Auto) Trace(0-2/hpf) (Absent) Ur Squamous Epith Cells Present A (Absent) Urine Bacteria Absent (Absent) Urine Glucose Negative (Negative) 04/11/19 Range/Units 16:49 WBC (3.5-10.8) 10^3/uL RBC (3.70-4.87) 10^6 /uL Hgb (12.0-16.0) g/dL Hct (35-47) % MCV (80-97) fL MCH (27-31) pg MCHC (31-36) g/dL RDW (10-15) % Plt Count (150-450) 10^3/uL MPV (7.4-10.4) fL Neut % (Auto) % Lymph % (Auto) % Creek % (Auto) % Eos % (Auto) % Baso % (Auto) % Absolute Neuts (auto) (1.5-7.7) 10^3/ul Absolute Lymphs (auto) (1.0-4.8) 10^3/ul Absolute Monos (auto) (0-0.8) 10^3/ul Absolute Eos (auto) (0-0.6) 10^3/ul Absolute Basos (auto) (0-0.2) 10^3/ul Absolute Nucleated RBC 10^3/ul Nucleated RBC % Hypochromasia Anisocytosis Sodium (135-145) mmol/L Potassium (3.5-5.0) mmol/L Chloride (101-111) mmol/L Carbon Dioxide (22-32) mmol/L Anion Gap (2-11) mmol/L BUN (6-24) mg/dL Creatinine (0.51-0.95) mg/dL Est GFR ( Amer) (>60) Est GFR (Non-Af Amer) (>60) BUN/Creatinine Ratio (8-20) Glucose (70-100) mg/dL Calcium (8.6-10.3) mg/dL Magnesium 1.8 L (1.9-2.7) mg/dL Total Bilirubin (0.2-1.0) mg/dL AST (13-39) U/L ALT (7-52) U/L Alkaline Phosphatase (34-104) U/L Troponin I 0.02 (<0.04) ng/mL Total Protein (6.4-8.9) g/dL Albumin (3.2-5.2) g/dL Globulin (2-4) g/dL Albumin/Globulin Ratio (1-3) Vitamin B12 > 1450 H (180-914) pg/mL Urine Color Urine Appearance Urine pH (5-9) Ur Specific [place] (1.010-1.030) Urine Protein (Negative) Urine Ketones (Negative) Urine Blood (Negative) Urine Nitrate (Negative) Urine Bilirubin (Negative) Urine Urobilinogen (Negative) Ur Leukocyte Esterase (Negative) Urine WBC (Auto) (Absent) Urine RBC (Auto) (Absent) Ur Squamous Epith Cells (Absent) Urine Bacteria (Absent) Urine Glucose (Negative) Result Diagrams: 04/11/19 16:49 04/11/19 16:49 Lab Statement: Any lab studies that have been ordered have been reviewed, and results considered in the medical decision making process. Complex Multi-Symp Course/Dx Course Of Treatment: On arrival into the ED, the patient appears well. Patient is smiling and in no acute distress. She denies any pain at this time. She states she is unsure if she is weak. Denies any difficulty breathing, CP. She has good strength throughout her bilateral upper and lower extremities. EOMI/PERRLA. No cervical LAD. No signs of trauma. No ecchymosis, signs of trauma or abrasions to the hip. Patient is able to flex and extend at the bilateral hips, knees, ankles without discomfort. The strength throughout. Log rolled without discomfort. Lungs CTA, RRR. No abdominal tenderness. Labs obtained which show a slightly low H&H consistent with her previous visits. UA shows no evidence of a UTI. We'll await sensitivities. CXR shows hyperinflation with no active cardiopulmonary disease. Discussed results with patient and patient's son. She is safe for discharge at this time and she will follow up closely with PCP at [facility]. She understands if she develops any worsening or changing symptoms, to return to the ED promptly. - Diagnoses Differential Diagnoses/HQI/PQRI: CVA, Urinary Tract Infection Provider Diagnoses: Weakness Discharge ED - Sign-Out/Discharge Documenting (check all that apply): Patient Departure - Discharge Plan Condition: Stable Disposition: HOME Patient Education Materials: Weakness (ED) Referrals: Ronni Bradley MD [Primary Care Provider] - Additional Instructions: Please follow up with your doctor next week Call to make an appt If any symptoms become worse, please return to the ED - Billing Disposition and Condition Condition: STABLE Disposition: Home
== END 2019-04-11 18:21 | disposition home or self-care (01) ==
LOC: ED 16:04
DX: R53.1 Weakness (principal); D64.9 Anemia, unspecified; E78.00 Pure hypercholesterolemia, unspecified; F41.9 Anxiety disorder, unspecified; F32.9 Major depressive disorder, single episode, unspecified; Z87.891 Personal history of nicotine dependence; Z79.899 Other long term (current) drug therapy; Z88.6 Allergy status to analgesic agent; Z88.8 Allergy status to other drugs, medicaments and biological substances
CPT/HCPCS: 36415; 71046; 80053; 81003; 81015; 82607; 83735; 84484; 85025; 87086; 99283

== ENCOUNTER 2020-01-07 16:43 | Inpatient (IN) ==
[2020-01-07] MEDS ORDERED: NS 0.9% 1000 ml BAG 1,000 ML IV ONE ×2 (17:04→19:42)
[2020-01-07 17:30] LABS: ABS Lymphocytes 0.4 10^3/ul (1.0-4.8); ABS Monocytes 0.3 10^3/ul (0-0.8); ABS Neutrophils 4.3 10^3/ul (1.5-7.7); Hematocrit 30 % (35-47); Hemoglobin 9.7 g/dL (12.0-16.0); Lymphocyte % 7.4 %; Mean Corpuscular HGB Conc 32 g/dL (31-36); Mean Corpuscular Hemoglobin 24 pg (27-31); Mean Corpuscular Volume 74 fL (80-97); Mean Platelet Volume 9.1 fL (7.4-10.4); Nucleated Red Blood Cells % 0.1; Platelet Count 209 10^3/uL (150-450); Red Blood Count 4.06 10^6 /uL (3.70-4.87); Red Cell Distribution Width 15 % (10-15)
[2020-01-07 17:42] LABS: ALT 14 U/L (7-52); AST 20 U/L (13-39); Albumin 3.8 g/dL (3.2-5.2); Albumin/Globulin Ratio 1.4 (1-3); Alkaline Phosphatase 43 U/L (34-104); Anion Gap 7 mmol/L (2-11); BUN/Creatinine Ratio 14.2 (8-20); Blood Urea Nitrogen 18 mg/dL (6-24); CO2 Carbon Dioxide 24 mmol/L (22-32); Calcium 9.2 mg/dL (8.6-10.3); Chloride 109 mmol/L (101-111); Creatine Kinase 104 U/L (10-223); EGFR African American 49.2 (>60); EGFR Non-African American 40.7 (>60); Globulin 2.8 g/dL (2-4); Glucose 108 mg/dL (70-100); Magnesium 1.5 mg/dL (1.9-2.7); Potassium 4.3 mmol/L (3.5-5.0); Sodium 140 mmol/L (135-145); Total Protein 6.6 g/dL (6.4-8.9)
[2020-01-07 17:47] LABS: Troponin I 0.03 ng/mL (<0.03)
[2020-01-07] MEDS ORDERED: Magnesium Sulfate 2 gm BAG 2 GM/50 ML BAG IVPB ONE (17:48)
[2020-01-07 18:11] LABS: TSH Ultra Thyroid Stim Horm 1.08 mcIU/mL (0.34-5.60)
[2020-01-07] MEDS ORDERED: Bacitracin OINTMENT TUBE TOPICAL ONE (18:37)
[2020-01-07 20:08] LABS: % Iron Saturation 28 % (15-55); Iron 83 ug/dL (50-212); Total Iron Binding Capacity 300 mcg/dL (250-450); Transferrin 214 mg/dL (203-362); Unsaturated Iron Binding < 285 ug/dL
[2020-01-07 20:28] LABS: Ferritin 45.7 ng/mL (11-307)
[2020-01-07] MEDS ORDERED: Iodixanol (CONTRAST) 320 MG/ML 100 ML SDV IV ONE (20:45)
[2020-01-07 20:53] LABS: Activated Partial Thrombo Time 22.6 seconds (26.0-38.0); INR 1.06 (0.82-1.09)
[2020-01-07] MEDS: NS 0.9% 1000 ml BAG 1,000 ML IV SCH (22:46)
[2020-01-07] MEDS: Heparin 5000 UNITS/ML 1 mL VIAL SUBCUT SCH (22:47)
[2020-01-07] MEDS: Aspirin EC 81 mg TAB.EC (enteric coated) PO SCH (22:47)
[2020-01-07 22:53] LABS: Troponin I 0.07 ng/mL (<0.03)
[2020-01-07 23:00] LABS: Urine Appearance Clear; Urine Bilirubin Negative (Negative); Urine Blood Negative (Negative); Urine Color Colorless; Urine Glucose Negative (Negative); Urine Ketones Negative (Negative); Urine Nitrite Negative (Negative); Urine Protein Negative (Negative); Urine Specific Gravity 1.012 (1.010-1.030); Urine Urobilinogen Negative (Negative)
[2020-01-08 05:09] LABS: Blood Urea Nitrogen 12 mg/dL (6-24); CO2 Carbon Dioxide 23 mmol/L (22-32); Cholesterol 154 mg/dL; EGFR African American 71.4 (>60); Glucose 74 mg/dL (70-100); HDL Cholesterol 63.8 mg/dL; LDL Cholesterol 82 mg/dL; Magnesium 1.9 mg/dL (1.9-2.7); Potassium 3.7 mmol/L (3.5-5.0); Sodium 144 mmol/L (135-145); Triglycerides 41 mg/dL
[2020-01-08] MEDS: Heparin 5000 UNITS/ML 1 mL VIAL SUBCUT SCH ×3 (05:10→21:46)
[2020-01-08 05:21] LABS: Anion Gap 7 mmol/L (2-11); Chloride 114 mmol/L (101-111)
[2020-01-08 05:43] LABS: ABS Basophils 0.1 10^3/ul (0-0.2); ABS Lymphocytes 1.6 10^3/ul (1.0-4.8); ABS Monocytes 0.3 10^3/ul (0-0.8); ABS Neutrophils 4.3 10^3/ul (1.5-7.7); Eosinophil % 0.7 %; Hematocrit 29 % (35-47); Hemoglobin 9.2 g/dL (12.0-16.0); Lymphocyte % 25.4 %; Mean Corpuscular HGB Conc 32 g/dL (31-36); Mean Corpuscular Hemoglobin 24 pg (27-31); Mean Corpuscular Volume 75 fL (80-97); Mean Platelet Volume 8.8 fL (7.4-10.4); Platelet Count 191 10^3/uL (150-450); Red Blood Count 3.84 10^6 /uL (3.70-4.87); Red Cell Distribution Width 15 % (10-15); White Blood Count 6.4 10^3/uL (3.5-10.8)
[2020-01-08 05:52] LABS: INR 1.1 (0.82-1.09)
[2020-01-08 06:53] LABS: Troponin I 0.11 ng/mL (<0.03)
[2020-01-08] MEDS: NS 0.9% 1000 ml BAG 1,000 ML IV SCH ×2 (09:13→23:13)
[2020-01-08] MEDS: Aspirin EC 81 mg TAB.EC (enteric coated) PO SCH (11:02)
[2020-01-08] MEDS ORDERED: DOBUTamine 2000 MCG/ML IVPREMX 500 MG/250 ML BAG IV ONE (12:37)
[2020-01-08] MEDS ORDERED: Metoprolol Tartrate 5 mg VIAL 5 ml VIAL (1 mg/ml) ONE (12:37)
[2020-01-08] MEDS ORDERED: Atropine 0.1 MG/ML 10 ml SYR (1 mg) ONE ×2 (12:37→12:40)
[2020-01-09] MEDS: Heparin 5000 UNITS/ML 1 mL VIAL SUBCUT SCH ×3 (05:35→20:56)
[2020-01-09] MEDS: Aspirin EC 81 mg TAB.EC (enteric coated) PO SCH (07:59)
[2020-01-09 08:06] LABS: Hematocrit 30 % (35-47); Hemoglobin 9.8 g/dL (12.0-16.0); Mean Corpuscular HGB Conc 32 g/dL (31-36); Mean Corpuscular Hemoglobin 24 pg (27-31); Mean Corpuscular Volume 75 fL (80-97); Mean Platelet Volume 8.5 fL (7.4-10.4); Platelet Count 190 10^3/uL (150-450); Red Blood Count 4.07 10^6 /uL (3.70-4.87); Red Cell Distribution Width 15 % (10-15); White Blood Count 5.7 10^3/uL (3.5-10.8)
[2020-01-09] MEDS ORDERED: Lidocaine 1% w EPI 1:100,000 MDV 20 ML VIAL ONE (08:35)
[2020-01-09 08:36] LABS: Calcium 8.4 mg/dL (8.6-10.3); EGFR African American 73.3 (>60); EGFR Non-African American 60.6 (>60); Magnesium 1.7 mg/dL (1.9-2.7); Potassium 3.9 mmol/L (3.5-5.0)
[2020-01-09] MEDS ORDERED: Magnesium Sulfate 2 gm BAG 2 GM/50 ML BAG IVPB ONE (09:15)
[2020-01-09] MEDS: NS 0.9% 1000 ml BAG 1,000 ML IV SCH (13:05)
[2020-01-10] MEDS: NS 0.9% 1000 ml BAG 1,000 ML IV SCH (02:00)
[2020-01-10 05:46] LABS: ABS Eosinophils 0.3 10^3/ul (0-0.6); ABS Lymphocytes 1.4 10^3/ul (1.0-4.8); ABS Monocytes 0.5 10^3/ul (0-0.8); ABS Neutrophils 2.7 10^3/ul (1.5-7.7); Hematocrit 29 % (35-47); Hemoglobin 9.3 g/dL (12.0-16.0); Mean Corpuscular HGB Conc 32 g/dL (31-36); Mean Corpuscular Hemoglobin 24 pg (27-31); Mean Corpuscular Volume 75 fL (80-97); Mean Platelet Volume 8.6 fL (7.4-10.4); Platelet Count 167 10^3/uL (150-450); Red Blood Count 3.83 10^6 /uL (3.70-4.87); Red Cell Distribution Width 15 % (10-15)
[2020-01-10] MEDS: Heparin 5000 UNITS/ML 1 mL VIAL SUBCUT SCH ×2 (05:54→13:37)
[2020-01-10] MEDS ORDERED: Magnesium Sulfate 2 gm BAG 2 GM/50 ML BAG IVPB ONE (09:00)
[2020-01-10] MEDS: Aspirin EC 81 mg TAB.EC (enteric coated) PO SCH (09:11)
[2020-01-10 12:30] VITALS: BP 160/80
== END 2020-01-10 14:41 | disposition home or self-care (01) | DRG 261 ==
LOC: MEDTELE 16:43 → ED 16:43 → MEDTELE 21:57
PROVIDERS: ADMIT Nurse Practitioner Family; ATTEND Internal Medicine